=== PATIENT | male | born 1945 | race Caucasian/White ===

== ENCOUNTER 2024-02-20 19:01 | Inpatient (IN) ==
[2024-02-20 19:21] LABS: iSTAT Creatinine 1.5 mg/dl (0.6-1.3); iSTAT Hemoglobin 13.6 g/dl (14.0-18.0); iSTAT Ionized Calcium 1.1 mmol/l (1.12-1.32); iSTAT Potassium 3.1 mmol/L (3.3-5.0)
[2024-02-20] MEDS: SODIUM CHLORIDE 0.9% 1,000 ML IV ONE (19:25)
[2024-02-20 19:31] LABS: iSTAT Arterial Blood Gas HCO3 21 meg/L (19-24); iSTAT Arterial Blood Gas pCO2 42 mmHg (35-46); iSTAT Arterial Blood Gas pO2 490 mmHg (80-95); iSTAT Carbon Dioxide 22 mmol/L (24-31); iSTAT Hematocrit 38 % (42-52); iSTAT Hemoglobin 12.9 g/dl (14.0-18.0); iSTAT Potassium 3.1 mmol/L (3.3-5.0); iSTAT Sample Type Arterial; iSTAT Sodium 140 mmol/L (135-144)
[2024-02-20 19:33] LABS: Basophils # (auto) 0.04 K/uL (0.00-0.20); Basophils % (auto) 0.3 %; Eosinophils # (auto) 0.16 K/uL (0.00-0.50); Eosinophils % (auto) 1.4 %; Hematocrit (blood only) 38.1 % (42.0-52.0); Hemoglobin 12.9 g/dl (14.0-18.0); Immature Granulocytes # (auto) 0.23 K/uL (0.01-0.20); Lymphocytes # (auto) 2.82 K/uL (1.20-3.40); Mean Corpuscular Hemoglobin 31.1 pg (25.0-34.0); Mean Corpuscular Hgb Conc 33.9 g/dL (32.0-36.0); Mean Corpuscular Volume 91.8 fL (80.0-100.0); Monocytes # (auto) 0.67 K/uL (0.11-0.59); Monocytes % (auto) 5.7 %; Neutrophils # (auto) 7.84 K/uL (1.40-6.50); Neutrophils % (auto) 66.6 %; Platelet Count 182 K/uL (130-400); RDW Coefficient of Variation 12.5 % (11.5-14.5); RDW Standard Deviation 42.2 fL (36.4-46.3); Red Blood Count 4.15 M/uL (4.70-6.10); White Blood Count 11.76 K/ul (4.8-10.8)
[2024-02-20] MEDS: PROPOFOL IV EMULSION 10 MG/ML 20 ML VIAL IV ONE (19:48)
[2024-02-20] MEDS: PROPOFOL IV EMULSION 10 MG/ML 100 ML VIAL IV ONE (19:48)
[2024-02-20 19:50] LABS: Alanine Aminotransferase 209 U/L (7-52); Albumin Level 3.7 gm/dl (3.4-5.0); Alkaline Phosphatase 69 U/L (34-104); Anion Gap 14 (3-11); Aspartate Aminotransferase 156 U/L (13-39); BUN Creatinine Ratio 12.6 (10-20); Bilirubin,Total 0.5 mg/dl (0.2-1.0); Blood Urea Nitrogen 18 mg/dl (6-23); Calcium 8.2 mg/dl (8.6-10.3); Carbon Dioxide 20 mmol/L (21-32); Chloride 105 mmol/L (98-107); Glucose 247 mg/dl (70-99(Fasting)); Lipase 33 U/L (11-82); Potassium 3.1 mmol/L (3.5-5.1); Sodium 139 mmol/L (136-145); Total Protein 6.9 gm/dl (6.0-8.3)
[2024-02-20] MEDS: OPTIRAY 320 125ml IV ONE (19:55)
[2024-02-20] MEDS ORDERED: fentaNYL BOLUS from BAG IV PRN (20:00)
[2024-02-20] MEDS: NOREPINEPHRINE/D5W 4 MG/250 ML PLCT IV SCH (20:05)
[2024-02-20] MEDS: fentaNYL citrate 2,500 MCG/250 ML BAG IV SCH (20:05)
[2024-02-20] MEDS: STAT IV Infusion **Titration per Protocol STA ×3 (20:06→21:14)
[2024-02-20] MEDS: fentaNYL citrate 2,500 MCG/250 ML BAG IV ONE (20:06)
[2024-02-20] MEDS: NOREPINEPHRINE/D5W 4 MG/250 ML IV ONE (20:06)
[2024-02-20 20:08] LABS: Bilirubin Direct 0.1 mg/dl (0-0.2)
[2024-02-20] MEDS: propofoL 1,000 MG/100 ML VIAL IV SCH (21:00)
[2024-02-20] MEDS ORDERED: PROPOFOL BOLUS FROM BAG IV PRN (21:06)
--- NOTE | 2024-02-20 21:10 | Emergency Department Note ---
Impression & Plan Cardiac arrest, Elevated troponin, Admitted to intensive care unit, NSTEMI (non-ST elevated myocardial infarction), Acute hypoxic respiratory failure, Aspiration pneumonitis ED Provider Note NAME: HELEN BUTLER AGE: 79 SEX: M : 1945 ARRIVES VIA: Ambulance INFORMANT: Patient, ED PROVIDER(S): Shelia Rodriguez MD CHIEF COMPLAINT: Cardiac arrest HPI: This is a an 79-year-old male presenting for cardiac arrest/ROSC. Patient reportedly was heard having a fall and laying on the ground unresponsive. She moved himnot breathing and called 911. EMS arrived and did between 5 and 7 rounds of CPR, 2 epis were given. Patient was intubated on scene, given 10 mg of IV Versed initially. Also given fentanyl. Given fluids and amiodarone 150 mg IV. Patient upon arrival does not have any spontaneous extremity movement, but does overbreathing ventilator. ROS: See above HPI for pertinent positives & negatives. A total of 10 systems reviewed and were otherwise negative. PAST MEDICAL HISTORY: See Below PAST SURGICAL HISTORY: See Below FAMILY HISTORY: See Below SOCIAL HISTORY: See Below HOME MEDICATIONS: See Below ALLERGIES: See Below VITALS: See Below PHYSICAL EXAMINATION: General: Intubated, occasional spontaneous respirations Head: Normocephalic, laceration to posterior occiput Eyes: Reactive to light bilaterally Ear, nose, throat: Normal external exam Neck: No bruit Respiratory: lungs clear to auscultation bilaterally, possible right greater than left lung sounds Cardiovascular: Regular rate/rhythm, no murmur GI: soft, Extremities: No obvious lacerations or deformity Neuro: GCS 3 T MEDICAL DECISION MAKING: This is an 79-year-old male presented for cardiac arrest/ROSC. Patient had ROSC by EMS. Patient does have slight right greater than left lung sounds, will get x-ray to elucidate for right mainstem. -Chest x-ray as Independently interpreted by me does reveal a ET tube that is only 0.6cm above the trey. Will pull back about 3 cm. Otherwise cardiomegaly noted. -Otherwise patient is overbreathing ventilator occasionally. Will get head CT, C-spine CT, CTA PE protocol. Will get basic blood work, troponin, lactic, ABG -Patient's bloodwork is reviewed showing borderline leukocytosis of 11.76, hemoglobin of 12.9. ABG is showing slight acidosis pH of 7.30, CO2 of 42. Probably related to patient's lactic acid level of 6.5 -Electrolytes reveal electrolytes are generally within normal limits Baresel hypokalemia 3.1. Anion gap of 14. Creatinine is 1.3. He has unknown transaminitis, slight, at this time. -Initial troponin is 41.8. BNP 103. -Patient initially having normal blood pressures between 120s and 160s. Will give fluids at this time to maintain fluid status. -Is beginning to get mildly hypotensive with pressure downtrending to the 100s. Eventually did become mildly hypotensive with maps around 60. Will initiate Levophed at this time. -Patient will be started on IV fentanyl drip for sedation. He has not had much spontaneous movement but due to patient comfortable, will we will proceed with sedation. -Patient waking up slightly more, will use IV propofol in addition to help maintain sedation. -Levophed is maintained at a low dose at this time. Pressures are significantly responsive with now 160s. -CT imaging is made stat however there are significant delays in reading this. Upon independent patient I do not see a large pulmonary emboli on the CTA PE protocol. I do not see large hemorrhage on the CT of the head. I do not see obvious cervical spine fractures. -I discussed care with patient's and daughter as well as daughter on the phone. I updated them about information as it is actively being presented. I did go over goals of care and initially daughter and mother do not think patient would want this type of care but they would agree to proceed until there is better understanding of patient's overall condition. Daughter on the phone would like for us to proceed with all measures. At this time, we will proceed with invasive measures/full code as per request of family. -Eventually CT imaging reveals no acute traumatic injury of the brain, cervical spine. CTA of the chest reveals no PE but does reveal possible aspiration. -I have discussed the case with Dr. Machado for admission at this time -ICU Santos FRANK, consulted as well as patient will be going to the ICU at this time. Differential diagnosis: Cardiac arrest, PE, ACS, anoxic brain injury, anemia, electrolyte disturbance ER treatment provided: See below Independent History obtained from: Diagnostics interpreted by me: ECG: ECG independently interpreted by me with normal sinus rhythm, rate of 62, left axis deviation, first-degree AV block, widened QRS, normal QTc, no ST segment elevations consistent with STEMI criteria Cardiac Monitoring: An order was placed for continuous cardiac monitoring. The monitor shows a rate of 85 with sinus rhythm. Laboratory studies: As stated above and show below. Imaging studies: See below. Critical Care Note: I have personally spent 85 minutes of critical care time in the direct management of this patient. This includes bedside care, interpretation of diagnostic studies, and testing, discussion with consultants, patient, and family members, and other required patient management activities. This 85 minutes is in excess of all separately billable procedures. Past Med/Surg History Problem List (Updated 02/21/24 @ 16:47 by Shelia Rodriguez MD) Ischemic cardiomyopathy Anoxic brain injury Left ventricular systolic dysfunction (LVSD) NSTEMI (non-ST elevated myocardial infarction) (Acute) Cardiac arrest (Acute) Admitted to intensive care unit (Acute) Hyperglycemia Elevated troponin (Acute) Transaminitis Prediabetes Renal insufficiency Aspiration pneumonitis (Acute) Acute hypoxic respiratory failure (Acute) Lactic acidosis Anoxic brain injury Cardiac arrest Medical History B12 deficiency COPD (chronic obstructive pulmonary disease) Hypothyroidism (acquired) Allergic symptoms Hyperlipidemia Social History Smoking Status: Never smoker Hx Alcohol Use: Yes Alcohol type: wine and hard liquor Hx Substance Use: No Preferred Language: Hebrew Communication 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 Beliefs That Will Affect Care: None Current Living Situation: Spouse Other Information That Helps Us Care for You: No Feels Safe at Home: Yes Safety Concerns: Feels Safe At This Time Assistive Devices: Glasses Allergies Allergies Allergy/AdvReac Type Severity Reaction Status Date / Time cholecalciferol (vitamin D3) Allergy Unknown On file w/ Unverified 02/21/24 09:29 [From Vitamin D3] [facility] no reaction listed ciprofloxacin Allergy Unknown On file w/ Unverified 02/21/24 09:29 [facility] no reaction listed delafloxacin Allergy Unknown On file w/ Unverified 02/21/24 09:29 [facility] no reaction listed ergocalciferol (vitamin D2) Allergy Unknown On file w/ Unverified 02/21/24 09:29 [From Vitamin D2] [facility] no reaction listed moxifloxacin Allergy Unknown On file w/ Unverified 02/21/24 09:29 [facility] no reaction listed Quinolones Allergy Unknown On file w/ Unverified 02/21/24 09:29 [facility] no reaction listed Sulfa (Sulfonamide Allergy Unknown On file w/ Unverified 02/21/24 09:29 Antibiotics) [facility] no reaction listed sulfacetamide [From Plexion] Allergy Unknown On file w/ Unverified 02/21/24 09:29 [facility] no reaction listed sulfasalazine Allergy Unknown On file w/ Unverified 02/21/24 09:29 [facility] no reaction listed sulfur [From Plexion] Allergy Unknown On file w/ Unverified 02/21/24 09:29 [facility] no reaction listed thyroid, pork Allergy Unknown On file w/ Unverified 02/21/24 09:29 [From Niva Thyroid] [facility] no reaction listed latex Allergy Rash Verified 02/21/24 09:29 Home Meds Home Medications Medication Instructions Recorded Confirmed atorvastatin 10 mg tablet 10 mg PO DAILY 02/21/24 02/21/24 cetirizine 10 mg tablet 10 mg PO DAILY PRN Allergy Symptoms 02/21/24 02/21/24 levothyroxine 50 mcg tablet See Rx Instructions .Route .COMPLEX 02/21/24 02/21/24 (Synthroid) Results & Data (ED) Vital Signs Vital Signs - 24 hr 02/20/24 19:00 02/20/24 19:06 02/20/24 19:07 Temperature 35.6 C L Temperature Source Rectal Pulse Rate 68 80 73 Respiratory Rate 22 22 Blood Pressure 98/63 L Blood Pressure Mean 74 Blood Pressure Position Lying Pulse Oximetry 94 99 Oxygen Delivery Method Mechanical Vent Fraction of Inspired Oxygen 70 100 SaO2/FiO2 Ratio 99 Sepsis Recent Fever Within 48 Hours No Sepsis New/Unexplained Change in Mental Status N/A Sepsis Action Taken by Nursing Physician Notified End-Tidal CO2 38 02/20/24 19:07 02/20/24 19:09 02/20/24 19:21 Temperature Temperature Source Pulse Rate 75 68 Respiratory Rate 23 22 Blood Pressure 91/57 L 86/64 L Blood Pressure Mean 68 71 Blood Pressure Position Pulse Oximetry 99 98 98 Oxygen Delivery Method Mechanical Vent Mechanical Vent Mechanical Vent Fraction of Inspired Oxygen 100 100 50 SaO2/FiO2 Ratio Sepsis Recent Fever Within 48 Hours Sepsis New/Unexplained Change in Mental Status Sepsis Action Taken by Nursing End-Tidal CO2 30 28 02/20/24 19:33 02/20/24 19:35 02/20/24 20:03 Temperature Temperature Source Pulse Rate 64 74 Respiratory Rate 22 22 Blood Pressure 130/80 165/83 H 92/65 L Blood Pressure Mean 96 125 74 Blood Pressure Position Pulse Oximetry 91 95 Oxygen Delivery Method Mechanical Vent Fraction of Inspired Oxygen 50 70 SaO2/FiO2 Ratio Sepsis Recent Fever Within 48 Hours Sepsis New/Unexplained Change in Mental Status Sepsis Action Taken by Nursing End-Tidal CO2 32 40 02/20/24 20:09 02/20/24 20:10 02/20/24 20:25 Temperature Temperature Source Pulse Rate 70 Respiratory Rate 18 Blood Pressure 151/89 H 161/86 H 156/90 H Blood Pressure Mean 109 118 95 Blood Pressure Position Pulse Oximetry 96 Oxygen Delivery Method Fraction of Inspired Oxygen 70 SaO2/FiO2 Ratio Sepsis Recent Fever Within 48 Hours Sepsis New/Unexplained Change in Mental Status Sepsis Action Taken by Nursing End-Tidal CO2 41 02/20/24 20:33 02/20/24 20:42 02/20/24 20:57 Temperature Temperature Source Pulse Rate 74 65 82 Respiratory Rate 21 23 20 Blood Pressure 164/84 H 159/114 H 154/91 H Blood Pressure Mean 110 129 112 Blood Pressure Position Pulse Oximetry 97 98 98 Oxygen Delivery Method Fraction of Inspired Oxygen 70 70 70 SaO2/FiO2 Ratio Sepsis Recent Fever Within 48 Hours Sepsis New/Unexplained Change in Mental Status Sepsis Action Taken by Nursing End-Tidal CO2 42 40 40 02/20/24 20:58 02/20/24 21:03 Temperature 35.9 C L Temperature Source Deleon Cath ( Temp Sensing) Pulse Rate 83 Respiratory Rate 20 Blood Pressure 122/80 Blood Pressure Mean 94 Blood Pressure Position Pulse Oximetry 99 Oxygen Delivery Method Fraction of Inspired Oxygen 70 SaO2/FiO2 Ratio Sepsis Recent Fever Within 48 Hours Sepsis New/Unexplained Change in Mental Status Sepsis Action Taken by Nursing End-Tidal CO2 39 Laboratory Data 02/21/24 03:40 02/21/24 03:40 Lab Results 02/20/24 02/20/24 02/20/24 Range/Units 19:08 19:09 19:16 WBC 11.76 H (4.8-10.8) K/ul RBC 4.15 L (4.70-6.10) M/uL Hgb 12.9 L (14.0-18.0) g/dl POC Hgb 13.6 L 12.9 L (14.0-18.0) g/dl Hct 38.1 L (42.0-52.0) % POC Hct 40 L 38 L (42-52) % MCV 91.8 (80.0-100.0) fL MCH 31.1 (25.0-34.0) pg MCHC 33.9 (32.0-36.0) g/dL RDW Std Deviation 42.2 (36.4-46.3) fL RDW Coeff of Abby 12.5 (11.5-14.5) % Plt Count 182 (130-400) K/uL MPV 10.0 (9.4-12.4) fL Immature Gran % (Auto) 2.0 % Neut % (Auto) 66.6 % Lymph % (Auto) 24.0 % [place] % (Auto) 5.7 % Eos % (Auto) 1.4 % Baso % (Auto) 0.3 % Neut # (Auto) 7.84 H (1.40-6.50) K/uL Lymph # (Auto) 2.82 (1.20-3.40) K/uL [place] # (Auto) 0.67 H (0.11-0.59) K/uL Eos # (Auto) 0.16 (0.00-0.50) K/uL Baso # (Auto) 0.04 (0.00-0.20) K/uL Immature Gran # (Auto) 0.23 H (0.01-0.20) K/uL Specimen Type Arterial POC pH 7.30 L (7.35-7.45) POC pCO2 42 (35-46) mmHg POC pO2 490 H (80-95) mmHg POC HCO3 21 (19-24) brigid/L POC Base Excess -6.0 (-9-1.8) brigid/L POC ABG O2 Sat 100.0 H (90-95) % POC Sodium 140 140 (135-144) mmol/L Sodium 139 (136-145) mmol/L POC Potassium 3.1 L 3.1 L (3.3-5.0) mmol/L Potassium 3.1 L (3.5-5.1) mmol/L POC Chloride 104 (101-112) mmol/L Chloride 105 (98-107) mmol/L Carbon Dioxide 20 L (21-32) mmol/L POC Total CO2 21 L 22 L (24-31) mmol/L Anion Gap 14 H (3-11) POC Anion Gap 20.0 (16-25) mmol/L POC BUN 18 (7-18) mg/dl BUN 18 (6-23) mg/dl Creatinine 1.43 H (0.6-1.4) mg/dl POC Creatinine 1.5 H (0.6-1.3) mg/dl Est Cr Clr Drug Dosing Not Reportable eGFR 49.23 BUN/Creatinine Ratio 12.6 (10-20) Glucose 247 H (70-99(Fasting)) mg/dl POC Glucose 250 H (70-99) mg/dl POC Glucose (other) 270 H (70-99) mg/dl Lactate 6.5 H* (0.4-2.0) mmol/L Calcium 8.2 L (8.6-10.3) mg/dl POC Ioniz Calcium [place] 1.10 L (1.12-1.32) mmol/l Magnesium 2.1 (1.7-2.4) mg/dl Total Bilirubin 0.5 (0.2-1.0) mg/dl Direct Bilirubin 0.1 (0-0.2) mg/dl AST 156 H (13-39) U/L ALT 209 H (7-52) U/L Alkaline Phosphatase 69 (34-104) U/L Troponin I High Sens 41.8 H (0-20) pg/ml B-Natriuretic Peptide 103 H (0-100) pg/ml Total Protein 6.9 (6.0-8.3) gm/dl Albumin 3.7 (3.4-5.0) gm/dl Lipase 33 (11-82) U/L Nasal Screen MRSA (PCR) (Negative) 02/20/24 Range/Units 20:53 WBC (4.8-10.8) K/ul RBC (4.70-6.10) M/uL Hgb (14.0-18.0) g/dl POC Hgb (14.0-18.0) g/dl Hct (42.0-52.0) % POC Hct (42-52) % MCV (80.0-100.0) fL MCH (25.0-34.0) pg MCHC (32.0-36.0) g/dL RDW Std Deviation (36.4-46.3) fL RDW Coeff of Abby (11.5-14.5) % Plt Count (130-400) K/uL MPV (9.4-12.4) fL Immature Gran % (Auto) % Neut % (Auto) % Lymph % (Auto) % [place] % (Auto) % Eos % (Auto) % Baso % (Auto) % Neut # (Auto) (1.40-6.50) K/uL Lymph # (Auto) (1.20-3.40) K/uL [place] # (Auto) (0.11-0.59) K/uL Eos # (Auto) (0.00-0.50) K/uL Baso # (Auto) (0.00-0.20) K/uL Immature Gran # (Auto) (0.01-0.20) K/uL Specimen Type POC pH (7.35-7.45) POC pCO2 (35-46) mmHg POC pO2 (80-95) mmHg POC HCO3 (19-24) brigid/L POC Base Excess (-9-1.8) brigid/L POC ABG O2 Sat (90-95) % POC Sodium (135-144) mmol/L Sodium (136-145) mmol/L POC Potassium (3.3-5.0) mmol/L Potassium (3.5-5.1) mmol/L POC Chloride (101-112) mmol/L Chloride (98-107) mmol/L Carbon Dioxide (21-32) mmol/L POC Total CO2 (24-31) mmol/L Anion Gap (3-11) POC Anion Gap (16-25) mmol/L POC BUN (7-18) mg/dl BUN (6-23) mg/dl Creatinine (0.6-1.4) mg/dl POC Creatinine (0.6-1.3) mg/dl Est Cr Clr Drug Dosing eGFR BUN/Creatinine Ratio (10-20) Glucose (70-99(Fasting)) mg/dl POC Glucose (70-99) mg/dl POC Glucose (other) (70-99) mg/dl Lactate (0.4-2.0) mmol/L Calcium (8.6-10.3) mg/dl POC Ioniz Calcium [place] (1.12-1.32) mmol/l Magnesium (1.7-2.4) mg/dl Total Bilirubin (0.2-1.0) mg/dl Direct Bilirubin (0-0.2) mg/dl AST (13-39) U/L ALT (7-52) U/L Alkaline Phosphatase (34-104) U/L Troponin I High Sens (0-20) pg/ml B-Natriuretic Peptide (0-100) pg/ml Total Protein (6.0-8.3) gm/dl Albumin (3.4-5.0) gm/dl Lipase (11-82) U/L Nasal Screen MRSA (PCR) Negative (Negative) Administered Medications Aspirin (Aspirin 81 Mg Chew) 81 mg NG QAM [facility] Stop: 03/22/24 14:59 Last Admin: 02/21/24 15:28 Dose: 81 mg Documented By: ADRIANA Norepinephrine Bitartrate (Levophed/D5w) 4 mg in 250 mls @ 0 mls/hr IV .Q0M JAXON; Protocol Stop: 03/21/24 19:59 Last Titration: 02/21/24 00:37 Dose: 0 mcg/kg/min, 0 mls/hr Documented By: Titration: 02/20/24 21:54 Dose: 0.05 mcg/kg/min, 19.7 mls/hr Documented By: Titration: 02/20/24 21:14 Dose: 0 mcg/kg/min, 0 mls/hr Documented By: Admin: 02/20/24 20:05 Dose: 0.05 mcg/kg/min, 19.7 mls/hr Documented By: JTank Co-signed By: ANTONY Propofol (Diprivan) 1,000 mg in 100 mls @ 0 mls/hr IV .Q0M JAXON; Protocol Stop: 02/23/24 21:14 Last Titration: 02/21/24 08:35 Dose: 0 mcg/kg/min, 0 mls/hr Documented By: Titration: 02/21/24 07:21 Dose: 20 mcg/kg/min, 12.6 mls/hr Documented By: ADRIANA Co-signed By: CLC Admin: 02/21/24 01:35 Dose: 20 mcg/kg/min, 12.6 mls/hr Documented By: CLC Co-signed By: [id number] Titration: 02/21/24 01:35 Dose: Infused Documented By: CLC Co-signed By: [id number] Titration: 02/20/24 23:43 Dose: 20 mcg/kg/min, 12.6 mls/hr Documented By: Admin: 02/20/24 21:00 Dose: 15 mcg/kg/min, 9.5 mls/hr Documented By: NADER Co-signed By: BROOKLYN Pantoprazole Sodium (Protonix) 40 mg in 10 mls @ 5 mls/min IV BID JAXON Stop: 03/21/24 23:39 Last Admin: 02/21/24 09:59 Dose: 5 mls/min Documented By: Admin: 02/21/24 00:09 Dose: 5 mls/min Documented By: CLC Piperacillin Sod/Tazobactam Sod (Zosyn) 4.5 gm in 100 mls @ 25 mls/hr IV Q8H JAXON; Protocol Stop: 02/28/24 03:59 Last Admin: 02/21/24 12:39 Dose: 25 mls/hr Documented By: Infusion: 02/21/24 09:10 Dose: Infused Documented By: Admin: 02/21/24 04:21 Dose: 25 mls/hr Documented By: MMG Parenteral Electrolytes (Plasma-Lyte A Ph 7.4) 1,000 mls @ 80 mls/hr IV .[id number] JAXON Stop: 02/22/24 00:29 Last Admin: 02/21/24 12:38 Dose: 80 mls/hr Documented By: Infusion: 02/21/24 12:38 Dose: Infused Documented By: Admin: 02/21/24 00:30 Dose: 80 mls/hr Documented By: CLC Heparin Sodium/Dextrose (Heparin Sodium/Dextrose) 25,000 units in 500 mls @ 31 mls/hr IV .Q16H8M JAXON; Protocol Stop: 03/22/24 15:17 Last Admin: 02/21/24 15:43 Dose: 1,550 units/hr, 31 mls/hr Documented By: ADRIANA Co-signed By: TERRY Miscellaneous (Icu Protocol For Hyperglycemia) 1 each N/A ACHS JAXON Stop: 02/23/24 07:29 Last Admin: 02/21/24 12:37 Dose: Not Given Documented By: Admin: 02/21/24 07:29 Dose: Not Given Documented By: ADRIANA Discontinued Medications Fentanyl Citrate (Fentanyl Citrate 2,500 Mcg/250 Ml Bag) Confirm Administered Dose 2,500 mcg IV .STK-MED ONE Stop: 02/20/24 20:02 Last Admin: 02/20/24 20:06 Dose: Not Given Documented By: NADER Heparin Sodium (Porcine) (Heparin Sod (Porcine) 1000 Unit/Ml) 7,000 units IV NOW ONE Stop: 02/21/24 15:21 Last Admin: 02/21/24 15:45 Dose: 7,000 units Documented By: ADRIANA Co-signed By: TERRY Sodium Chloride (Nss) 1,000 mls @ 999 mls/hr IV .Q1H1M ONE Stop: 02/20/24 20:24 Last Infusion: 02/20/24 20:26 Dose: Infused Documented By: Admin: 02/20/24 19:25 Dose: 999 mls/hr Documented By: NADER Fentanyl Citrate (Fentanyl Citrate) 2,500 mcg in 250 mls @ 2.5 mls/hr IV .Q96H JAXON; Protocol Stop: 03/05/24 19:59 Last Titration: 02/21/24 00:03 Dose: Infused Documented By: BREANNE Co-signed By: REBECCA Admin: 02/20/24 20:05 Dose: 25 mcg/hr, 2.5 mls/hr Documented By: NADER Co-signed By: ANTONY Piperacillin Sod/Tazobactam Sod (Zosyn) 4.5 gm in 100 mls @ 200 mls/hr IV NOW ONE; Protocol Stop: 02/20/24 21:01 Last Infusion: 02/20/24 21:44 Dose: Infused Documented By: Admin: 02/20/24 21:14 Dose: 200 mls/hr Documented By: NADER Calcium Chloride 1,000 mg/ (Dextrose) 60 mls @ 240 mls/hr IV NOW STA Stop: 02/20/24 23:28 Last Infusion: 02/21/24 00:37 Dose: Infused Documented By: Admin: 02/20/24 23:51 Dose: 240 mls/hr Documented By: CLC Potassium Chloride (K Satnam / Wtr) 10 meq in 100 mls @ 100 mls/hr IV Q1H JAXON; Protocol Stop: 02/21/24 01:14 Last Infusion: 02/21/24 01:58 Dose: Infused Documented By: Admin: 02/21/24 00:51 Dose: 100 mls/hr Documented By: [id number] Infusion: 02/21/24 00:51 Dose: Infused Documented By: [id number] Admin: 02/20/24 23:58 Dose: 100 mls/hr Documented By: BREANNE Ioversol (Optiray 320 125ml) 90 ml IV ONCE ONE Stop: 02/20/24 19:55 Last Admin: 02/20/24 19:55 Dose: 90 ml Documented By: VERONICA Escobaraneous (Stat Iv Infusion Titration Per Protocol) 1 each N/A NOW STA Stop: 02/20/24 19:59 Last Admin: 02/20/24 20:06 Dose: Not Given Documented By: NADER James (Stat Iv Infusion Titration Per Protocol) 1 each N/A NOW STA Stop: 02/20/24 20:01 Last Admin: 02/20/24 20:06 Dose: Not Given Documented By: NADER James (Stat Iv Infusion Titration Per Protocol) 1 each N/A NOW STA Stop: 02/20/24 21:07 Last Admin: 02/20/24 21:14 Dose: Not Given Documented By: NADER Norepinephrine Bitartrate (Norepinephrine/D5w 4 Mg/250 Ml) Confirm Administered Dose 4 mg IV .STK-MED ONE Stop: 02/20/24 19:29 Last Admin: 02/20/24 20:06 Dose: Not Given Documented By: NADER Potassium Chloride (Potassium Chloride 20 Meq/15 Ml Udc) 40 meq PO NOW STA Stop: 02/20/24 23:15 Last Admin: 02/20/24 23:58 Dose: 40 meq Documented By: BREANNE Propofol (Propofol Iv Emulsion 10 Mg/Ml 20 Ml Vial) Confirm Administered Dose 200 mg IV .STK-MED ONE Stop: 02/20/24 19:03 Last Admin: 02/20/24 19:48 Dose: Not Given Documented By: NADER Propofol (Propofol Iv Emulsion 10 Mg/Ml 100 Ml Vial) Confirm Administered Dose 1,000 mg IV .STK-MED ONE Stop: 02/20/24 19:06 Last Admin: 02/20/24 19:48 Dose: Not Given Documented By: JT Discharge Plan Visit Data Chief Complaint: Cardiac Arrest/CPR Stated Complaint: Cardiac Arrest/CPR ED Provider: Shelia Rodriguez Discharge Problem: Cardiac arrest, Elevated troponin, Admitted to intensive care unit, NSTEMI (non-ST elevated myocardial infarction), Acute hypoxic respiratory failure, Aspiration pneumonitis Patient Disposition: Admitted As Inpatient Discharge Instructions Interventions: ED Discharge Assessment Last Done: 02/20/24 22:05
[2024-02-20] MEDS: PIPERACILLIN/TAZOBACTAM 4.5 GM/100 ML BAG IV ONE (21:14)
--- NOTE | 2024-02-20 21:15 | History & Physical Report ---
Date of Service February 20, 2024 Assessment & Plan (1) Cardiac arrest: (2) Aspiration pneumonitis: (3) Elevated troponin: (4) Acute hypoxic respiratory failure: (5) Hyperglycemia: (6) Transaminitis: (7) Lactic acidosis: (8) Renal insufficiency: (9) Prediabetes: (10) Hyperlipidemia: (11) COPD (chronic obstructive pulmonary disease): (12) Anoxic brain injury: (13) Admitted to intensive care unit: Plan Admitted to intensive care unit Cardiac arrest/ROSC, with intubation in the field Status post CPR in the field with epinephrine x 2, amiodarone 150 mg IV Continue propofol, fentanyl for sedation, to be adjusted by ICU Patient became hypotensive in the emergency department, and was started on Levophed, which may be able to be tapered off after IV fluid resuscitation Serial ABGs, CBC with differential, chemistry profile, magnesium and troponin levels Initial troponin 41.8, with follow-up 765.5 Order complete echocardiogram Consult cardiology, scaffolder and neurology Bilateral aspiration pneumonia- Zosyn 4.5 g IV every 8 hours MRSA swab DuoNebs every 2 hours as needed Serial ABGs Hyperglycemia/history of prediabetes- ICU hyperglycemic protocol Glucose initially 247, with follow-up 137 Transaminitis/shock liver/sepsis- Lactate 6.5, with follow-up 3.7 AST 156, ALT 209 History of Present Illness Chief Complaint: The patient presented to the emergency department via ambulance with history of cardiac arrest/ROSC. His reports that he had gone into another room, and then she heard a loud noise, and found him to not be breathing, with his head tilted back, and she then called 911. EMS did give somewhere between 5-7 rounds of CPR, and epinephrine time 2. Patient was intubated on the scene, after being given 10 mg of Versed IV. The patient also received amiodarone 150 mg IV, and was brought to the emergency department. Primary Care Provider: NO PCP The patient is an 79-year-old male with a past medical history including hyperlipidemia, allergic symptoms, COPD, vitamin B12 deficiency, prediabetes and hypothyroidism. He presents to the emergency department status postcardiac arrest with ROSC as noted above. Due to hypotension, he was placed on Levophed, and also placed on fentanyl drip plus propofol for sedation. He did receive normal saline 1 L IV fluid bolus in the ED. Allergies Allergy/AdvReac Type Severity Reaction Status Date / Time latex Allergy Rash Verified 02/20/24 21:05 No Known Drug Allergies Allergy . Verified 02/20/24 21:04 Past Med/Surg History Problem List (Updated 02/21/24 @ 03:09 by Manfred Foster MD) Admitted to intensive care unit Hyperglycemia Elevated troponin Transaminitis Prediabetes Renal insufficiency Aspiration pneumonitis Acute hypoxic respiratory failure Lactic acidosis Anoxic brain injury Cardiac arrest Medical History (Updated 02/21/24 @ 03:09 by Manfred Foster MD) B12 deficiency COPD (chronic obstructive pulmonary disease) Hypothyroidism (acquired) Allergic symptoms Hyperlipidemia Social History Smoking Status: Never smoker Hx Alcohol Use: Yes Alcohol type: wine and hard liquor Hx Substance Use: No Preferred Language: Belarusian Communication Ability: Effective Field Spec Required: No Beliefs That Will Affect Care: None Current Living Situation: Spouse Other Information That Helps Us Care for You: No Feels Safe at Home: Yes Safety Concerns: Feels Safe At This Time Assistive Devices: Glasses Review of Systems Review of Systems: The patient cannot contribute to the HPI or review of systems due to his acute presentation, and his and 2 daughters, 1 of which was on the phone, did provide most of the history, along with the EMS review. Physical Exam Physical Exam: The patient is intubated, sedated and unresponsive. Patient is intubated, and breathing with the vent. HEENT--PERRL, mucous membranes and oropharynx dry. Neck--supple. No JVD. No bruits. Thyroid normal, trachea midline, no adenopathy. Heart--tachycardic and regular. No murmurs, rubs or gallops. Lungs--coarse breath sounds bilaterally Abdomen--normal bowel sounds and soft. Nontender. Nondistended. Mildly tympanitic Extremities-- No edema Dermatologic--normal skin turgor, normal color, no abnormal lymph nodes, no rash. Neurologic--limited exam Rheumatologic--limited exam Psychiatric--intubated and sedated Results & Data Results & Data Vital Signs (Past 12 Hours) Vital Signs Temp Pulse Resp BP Pulse Ox O2 Del Method FiO2 02/20/24 20:58 35.9 C L 02/20/24 20:42 65 23 159/114 H 98 70 02/20/24 20:33 74 21 164/84 H 97 70 02/20/24 20:25 156/90 H 02/20/24 20:10 161/86 H 02/20/24 20:09 70 18 151/89 H 96 70 02/20/24 20:03 74 22 92/65 L 95 70 02/20/24 19:35 165/83 H 02/20/24 19:33 64 22 130/80 91 Mechanical Vent 50 02/20/24 19:21 68 22 86/64 L 98 Mechanical Vent 50 02/20/24 19:09 75 23 91/57 L 98 Mechanical Vent 100 02/20/24 19:07 99 Mechanical Vent 100 02/20/24 19:07 35.6 C L 73 22 98/63 L 99 Mechanical Vent 100 02/20/24 19:06 80 02/20/24 19:00 68 22 94 70 Laboratory Results Laboratory Results WBC 11.76 K/ul (4.8-10.8) H 02/20/24 19:09 RBC 4.15 M/uL (4.70-6.10) L 02/20/24 19:09 Hgb 12.9 g/dl (14.0-18.0) L 02/20/24 19:09 POC Hgb 13.3 g/dl (14.0-18.0) L 02/20/24 23:58 Hct 38.1 % (42.0-52.0) L 02/20/24 19:09 POC Hct 39 % (42-52) L 02/20/24 23:58 MCV 91.8 fL (80.0-100.0) 02/20/24 19:09 MCH 31.1 pg (25.0-34.0) 02/20/24 19:09 MCHC 33.9 g/dL (32.0-36.0) 02/20/24 19:09 RDW Std Deviation 42.2 fL (36.4-46.3) 02/20/24 19:09 RDW Coeff of Abby 12.5 % (11.5-14.5) 02/20/24 19:09 Plt Count 182 K/uL (130-400) 02/20/24 19:09 MPV 10.0 fL (9.4-12.4) 02/20/24 19:09 Immature Gran % (Auto) 2.0 % 02/20/24 19:09 Neut % (Auto) 66.6 % 02/20/24 19:09 Lymph % (Auto) 24.0 % 02/20/24 19:09 [place] % (Auto) 5.7 % 02/20/24 19:09 Eos % (Auto) 1.4 % 02/20/24 19:09 Baso % (Auto) 0.3 % 02/20/24 19:09 Neut # (Auto) 7.84 K/uL (1.40-6.50) H 02/20/24 19:09 Lymph # (Auto) 2.82 K/uL (1.20-3.40) 02/20/24 19:09 [place] # (Auto) 0.67 K/uL (0.11-0.59) H 02/20/24 19:09 Eos # (Auto) 0.16 K/uL (0.00-0.50) 02/20/24 19:09 Baso # (Auto) 0.04 K/uL (0.00-0.20) 02/20/24 19:09 Immature Gran # (Auto) 0.23 K/uL (0.01-0.20) H 02/20/24 19:09 Specimen Type Arterial 02/20/24 23:58 Sample Site L Radial 02/20/24 23:58 POC pH 7.36 (7.35-7.45) 02/20/24 23:58 POC pCO2 40 mmHg (35-46) 02/20/24 23:58 POC pO2 59 mmHg (80-95) L 02/20/24 23:58 POC HCO3 23 brigid/L (19-24) 02/20/24 23:58 POC Total CO2 24 mmol/L (24-31) 02/20/24 23:58 POC Base Excess -3.0 brigid/L (-9-1.8) 02/20/24 23:58 O2 Sat Pulse Oximetry 95 02/20/24 23:58 ABG pH (Temp Correct) 7.355 (7.35-7.45) 02/20/24 23:58 ABG pCO2 (Temp Corrct 41 mmHg (35-46) 02/20/24 23:58 POC ABG pO2 at Pt Temp 59 02/20/24 23:58 POC ABG O2 Sat 89.0 % (90-95) L 02/20/24 23:58 Raul Test Pass 02/20/24 23:58 O2 Delivery Device Ventilator 02/20/24 23:58 Vent Mode AC 02/20/24 23:58 POC FiO2 40 % 02/20/24 23:58 End Tidal CO2 31 02/20/24 23:58 POC Sodium 139 mmol/L (135-144) 02/20/24 23:58 Sodium 139 mmol/L (136-145) 02/20/24 19:09 POC Potassium 4.1 mmol/L (3.3-5.0) 02/20/24 23:58 Potassium 3.1 mmol/L (3.5-5.1) L 02/20/24 19:09 POC Chloride 104 mmol/L (101-112) 02/20/24 19:09 Chloride 105 mmol/L (98-107) 02/20/24 19:09 Carbon Dioxide 20 mmol/L (21-32) L 02/20/24 19:09 POC Total CO2 21 mmol/L (24-31) L 02/20/24 19:09 Anion Gap 14 (3-11) H 02/20/24 19:09 POC Anion Gap 20.0 mmol/L (16-25) 02/20/24 19:09 POC BUN 18 mg/dl (7-18) 02/20/24 19:09 BUN 18 mg/dl (6-23) 02/20/24 19:09 Creatinine 1.43 mg/dl (0.6-1.4) H 02/20/24 19:09 POC Creatinine 1.5 mg/dl (0.6-1.3) H 02/20/24 19:09 Est Cr Clr Drug Dosing Not Reportable 02/20/24 19:09 eGFR 49.23 02/20/24 19:09 BUN/Creatinine Ratio 12.6 (10-20) 02/20/24 19:09 Glucose 247 mg/dl (70-99(Fasting)) H 02/20/24 19:09 POC Glucose 137 mg/dl (70-99) H 02/21/24 00:34 POC Glucose (other) 270 mg/dl (70-99) H 02/20/24 19:09 Lactate 3.7 mmol/L (0.4-2.0) H* 02/20/24 23:24 Calcium 8.2 mg/dl (8.6-10.3) L 02/20/24 19:09 POC Ioniz Calcium [place] 1.10 mmol/l (1.12-1.32) L 02/20/24 19:09 Magnesium 2.1 mg/dl (1.7-2.4) 02/20/24 19:09 Total Bilirubin 0.5 mg/dl (0.2-1.0) 02/20/24 19:09 Direct Bilirubin 0.1 mg/dl (0-0.2) 02/20/24 19:09 AST 156 U/L (13-39) H 02/20/24 19:09 ALT 209 U/L (7-52) H 02/20/24 19:09 Alkaline Phosphatase 69 U/L (34-104) 02/20/24 19:09 Troponin I High Sens 765.5 pg/ml (0-20) H* D 02/20/24 23:24 B-Natriuretic Peptide 103 pg/ml (0-100) H 02/20/24 19:09 Total Protein 6.9 gm/dl (6.0-8.3) 02/20/24 19:09 Albumin 3.7 gm/dl (3.4-5.0) 02/20/24 19:09 Lipase 33 U/L (11-82) 02/20/24 19:09 Nasal Screen MRSA (PCR) Negative (Negative) 02/20/24 20:[address] 02/20/24 19:16 Exam(s): CT C SPINE EXAM: CT Cervical Spine Without Intravenous Contrast CLINICAL HISTORY: Reason for exam: ROSC. head trauma, fall. TECHNIQUE: Axial computed tomography images of the cervical spine without intravenous contrast. Automated exposure control was utilized for the study. A dose lowering technique was utilized adhering to the principles of ALARA. COMPARISON: None FINDINGS: Motion artifact. Endotracheal intubation. Vertebrae: Mild levoscoliosis. C4 vertebral minimal retrolisthesis. Otherwise no segmental malalignment. Osteopenia. No acute fracture. Discs/spinal canal/neural foramina: C5-C7 levels moderately advanced degenerative spondylitic changes with variable degrees of neuroforaminal and spinal canal stenosis. Soft tissues: Grossly unremarkable. . IMPRESSION: No acute fracture or traumatic malalignment of the cervical spine is noted . Electronically signed by: Danette Salazar MD, DABR 02/21/24 01:[address] 02/20/24 19:16 Exam(s): CT HEAD Without Contrast EXAM: CT Head Without Intravenous Contrast CLINICAL HISTORY: Reason for exam: ROSC. head trauma, fall. TECHNIQUE: Axial computed tomography images of the head/brain without intravenous contrast. Automated exposure control was utilized for the study. A dose lowering technique was utilized adhering to the principles of ALARA. COMPARISON: None. FINDINGS: Diagnostic sensitivity of the exam is reduced by motion/beam hardening artifacts Brain: Grossly no acute intracranial hemorrhage is evident. There is no mass-effect or midline shift. Johnson-white matter differentiation is maintained. Age-related diffuse cerebral atrophy with widening of the extra-axial spaces/ventricular dilatation. Bilateral senescent punctate basal ganglion calcifications. Bilateral mild/moderate periventricular white matter small vessel ischemic changes. Bones/joints: Unremarkable. No acute fracture. Soft tissues: Unremarkable. Anteriorly thick densely calcified interhemispheric plaque. Sinuses: Unremarkable as visualized. No acute sinusitis. Mastoid air cells: Unremarkable as visualized. No mastoid effusion. IMPRESSION: Limited exam. No conclusive acute intracranial abnormality identified. Significant chronic involutional changes of the brain. . Electronically signed by: Danette Salazar MD, DABR 02/20/24 23:02 PM Chest X-Ray 02/20/24 19:17 Exam(s): XR CXR 1 VIEW EXAM: XR Chest, 1 View CLINICAL HISTORY: Reason for exam: ROSC, intubation. TECHNIQUE: Frontal view of the chest. COMPARISON: None FINDINGS: Hardware: Endotracheal tube terminates in the region of the proximal right mainstem bronchus. Recommend approximately 4-5 cm of retraction. Lungs/pleura: Opacities bilaterally. No pleural effusion or pneumothorax. Heart/mediastinum: Mild enlargement of the cardiac silhouette. Soft tissues: Unremarkable. Bones: No acute fracture. Degenerative changes of the spine. Upper abdomen: Normal. IMPRESSION: 1. Endotracheal tube terminates in the region of the proximal right mainstem bronchus. Recommend approximately 4-5 cm of retraction. 2. Opacities bilaterally may represent atelectasis versus edema versus infectious/inflammatory process. Electronically signed by: Rolly Carmen M.D. 02/21/24 01:59 AM Chest CTA 02/20/24 19:37 Exam(s): CTA CHEST IV Amt: 90 ml opti 320 EXAM: CT Angiography Chest With Intravenous Contrast CLINICAL HISTORY: Reason for exam: PE. TECHNIQUE: Axial computed tomographic angiography images of the chest with intravenous contrast. Automated exposure control was utilized for the study. A dose lowering technique was utilized adhering to the principles of ALARA. MIP reconstructed images were created and reviewed. COMPARISON: X-ray chest: 02/20/2024 FINDINGS: Patient is intubated. Pulmonary arteries: Unremarkable. No pulmonary embolism. Aorta: No acute findings. No thoracic aortic aneurysm. Lungs: Central airways are patent. Bilateral mild/moderate bronchial wall thickening. Posteriorly in both lungs, predominantly basilar subpleural consolidation/atelectasis and interstitial infiltrates are seen with hilar extension LT>RT. No discernible mass. Pleural space: Posteriorly minimal/ trace right pleural fluid. No significant effusion. No pneumothorax. Elevated right hemidiaphragm Heart: Cardiomegaly. Calcified left coronary arterial atherosclerosis.. No significant pericardial effusion. No evidence of RV dysfunction. Bones/joints: Osteopenia. No acute osseous findings. Increased thoracic kyphosis. Degenerative thoracic spondylolysis. Soft tissues: Unremarkable. Lymph nodes: Unremarkable. No enlarged lymph nodes. IMPRESSION: No evidence of pulmonary embolism or aortic aneurysm. Bilateral bronchial wall thickening. Posteriorly in both lungs predominantly basilar regions subpleural consolidation/atelectasis and interstitial infiltrates with hilar extension demonstrated, concerning for aspiration. Recommend clinical correlation/follow-up. . Electronically signed by: Danette Salazar MD, DABR 02/21/24 00:51 AM Code Status & VTE Plan Code Status Conditional code-family does not want additional interventions performed beyond present VTE Prophylaxis Plan VTE Prophylaxis will be ordered: Yes Critical Care Time 50 minutes PG Care Time/CCT Total # of Minutes Spent Total Time Spent with Patient: Total time spent is greater than 50% in coordination of care (as documented) at patient's floor/unit and/or counseling patient: Coding Level of Care Code 98775 INT INP/OBS CARE 3/75MIN Diagnoses Cardiac arrest I46.9 Aspiration pneumonitis J69.0 Elevated troponin R79.89 Acute hypoxic respiratory failure J96.01 Hyperglycemia R73.9 Transaminitis R74.01 Lactic acidosis E87.20 Renal insufficiency N28.9 Prediabetes R73.03 Hyperlipidemia E78.5 COPD (chronic obstructive pulmonary disease) J44.9 Anoxic brain injury G93.1 Admitted to intensive care unit Z78.9
[2024-02-20 21:38] LABS: Magnesium 2.1 mg/dl (1.7-2.4)
--- NOTE | 2024-02-20 21:45 | Critical Care Consultation ---
Date of Consultation February 20, 2024 Assessment & Plan (1) Cardiac arrest: Reason Critically Ill: 79-year-old male presents to the ICU post infield cardiac arrest where he received multiple rounds of CPR and epinephrine via EMS. He was reported to received some CPR by the neighbor prior to EMS arrival but unsure of exact downtime. He was on responsive after ROSC was achieved And emergently intubated prior to arrival to the hospital. Suspect underlying anoxic injury. Was briefly on vasopressors but now weaned off. Admitted to ICU for further management at this time. Neuro - Anoxic injury?Patient unresponsive following cardiac arrest. Exam limited due to current sedation on board and patient is currently mechanically ventilated as well. - CT head unremarkable. CT spine cervical without acute findings - MRI read pending - Follow-up EEG - Continue supportive care and reevaluate neurological status tomorrow Cardiac - Cardiac arrestunsure of exact etiology at this time but suspect arrhythmia and field. Patient apparently has no previous cardiac history and does not have a pacemaker or AICD - Per report, patient received several rounds of CPR and epinephrine in the field via EMS before ROSC achieved - EKG without ST elevation. Mildly elevated troponin would be consistent with postarrest requiring chest compressions and epinephrine. Continue to trend troponin for peak - Briefly on vasopressor support with Levophed. Now weaned off. Maintain maps greater than 65 - Follow-up TTE - Continuous monitoring on telemetry - Follow-up morning EKG Respiratory - Acute hypoxemic respiratory failureno previous history of pulmonary disease. Likely secondary to aspiration pneumonitis following cardiac arrest -Currently mechanically ventilated for airway support. Wean ventilator settings as tolerated -CTA negative for acute PE. Bilateral infiltrates consistent with aspiration noted -Nebs as needed - Follow-up morning ABG and chest x-ray - Continuous pulse ox and end-tidal CO2 monitoring GI - N.p.o. PPI for PUD prophylaxis RENAL/LYTES - AKIcreatinine 1.43 without previous baseline to compare. Suspect this is prerenal following cardiac arrest. - No significant electrolyte abnormalities or acidosis to indicate bicarb. Continue with IV fluid resuscitation -Maintain maps greater than 65 to ensure renal perfusion -Avoid nephrotoxins and renally dose medications - Monitor routine BMPs. Replete electrolytes as indicated Lactic acidosis Likely secondary to cardiac arrest. Aspiration pneumonitis likely playing a role as well. Currently downtrending, trend till normal. - Foleystrict I's and O's ENDO - No history of diabetes or thyroid disease. ICU hyperglycemic protocol HEME - H&H stable, monitor routine CBC ID - Aspiration pneumoniapatient with bilateral consolidations on CTA chest consistent with aspiration likely during the event of cardiac arrest. Mild leukocytosis, currently afebrile - Continue with empiric Zosyn for now LINES/IV ACCESS - Peripheral IVs. Patient currently weaned off vasopressor support, no indication for central line at this time DVT PROPHYLAXIS - SCDs CODE STATUS: Per conversation with the patient's family at bedside Conditional code with no additional CPR/defibrillation in the event of further cardiac arrest. Okay with mechanical ventilation for now I have personally spent 56 minutes of critical care time in the direct management of this patient. This is a life/limb threatening event. This includes time spent evaluating patient, direct bedside care, chart review, placing orders, interpretation of diagnostic studies, discussion with consultants, patient, and family members, as well as other required patient management activities. This time is exclusive of all separately billable procedures, and teaching time and separate from and in addition to any other critical care service time. Thank you for allowing us to participate in the care of this patient. Please refer to my attending physician's documentation for any further recommendations. (2) Anoxic brain injury: (3) Lactic acidosis: (4) Acute hypoxic respiratory failure: (5) Aspiration pneumonitis: Supervising Physician Co-Signing Physician Notes Patient seen and examined. EMR reviewed. Discussed with critical care OBDULIA. Agree with assessment plan as noted. Please refer to my progress note from 02/21/2024 for additional details History of Present Illness History of Present Illness Patient is a 79-year-old male not previously known to this facility, without documented past medical history. Patient's and daughter at the bedside state that he does not take any medications, and does not routinely follow-up with primary care. He presented to the hospital earlier this evening via EMS following cardiac arrest at home in which the heard him fall in the other room. Patient's at the bedside states that he was not complaining of any symptoms previously during the day, and they even walked about a mile and a half prior to this event without any difficulty. She states that she heard him fall in the other room and found him to be unresponsive without any breaths, and was unable to turn him over to start CPR so she went to get the neighbor who began CPR until EMS arrived. EMS did multiple rounds of compressions and epinephrine (no shocks delivered per conversation with the ED physician) until ROSC was achieved. Patient again became pulseless briefly and required additional CPR until ROSC was again achieved. He was emergently intubated by EMS in field. On arrival to the emergency department patient was noted to be unresponsive but was chewing on ET tube and sedation was started. He underwent CT head and CT cervical spine which were both negative for acute findings. CTA chest was obtained which was negative for PE but did show bilateral infiltrates in the lungs consistent with Aspiration. Patient was briefly on Levophed drip which was weaned off as he became hypertensive. EKG without ST elevation and Mildly elevated troponin. He did have elevated lactate which would be consistent with cardiac arrest. I did have a discussion with the family regarding the patient's CODE STATUS and current medical condition. It is likely that he sustained some degree of anoxic injury due to prolonged cardiac arrest in field, however cannot be sure of degree of cognitive deficits sustained at this point. Both daughter and state that the patient would not want to be in a comatose state or significantly debilitated and if he were to have additional cardiac arrest would not want additional compressions or shocks or other ACLS measures. Will transition to conditional code per family wishes and continue with supportive care here in the ICU. He did undergo MRI which is pending read, and hopefully will have better understanding of his neurological status within the next 24 hours. Allergies Allergy/AdvReac Type Severity Reaction Status Date / Time cholecalciferol (vitamin D3) Allergy Unknown On file w/ Unverified 02/21/24 09:29 [From Vitamin D3] [facility] no reaction listed ciprofloxacin Allergy Unknown On file w/ Unverified 02/21/24 09:29 [facility] no reaction listed delafloxacin Allergy Unknown On file w/ Unverified 02/21/24 09:29 [facility] no reaction listed ergocalciferol (vitamin D2) Allergy Unknown On file w/ Unverified 02/21/24 09:29 [From Vitamin D2] [facility] no reaction listed moxifloxacin Allergy Unknown On file w/ Unverified 02/21/24 09:29 [facility] no reaction listed Quinolones Allergy Unknown On file w/ Unverified 02/21/24 09:29 [facility] no reaction listed Sulfa (Sulfonamide Allergy Unknown On file w/ Unverified 02/21/24 09:29 Antibiotics) [facility] no reaction listed sulfacetamide [From Plexion] Allergy Unknown On file w/ Unverified 02/21/24 09:29 [facility] no reaction listed sulfasalazine Allergy Unknown On file w/ Unverified 02/21/24 09:29 [facility] no reaction listed sulfur [From Plexion] Allergy Unknown On file w/ Unverified 02/21/24 09:29 [facility] no reaction listed thyroid, pork Allergy Unknown On file w/ Unverified 02/21/24 09:29 [From Niva Thyroid] [facility] no reaction listed latex Allergy Rash Verified 02/21/24 09:29 Home Medications Medication Instructions Recorded Confirmed Type atorvastatin 10 mg tablet 10 mg PO DAILY 02/21/24 02/21/24 History cetirizine 10 mg tablet 10 mg PO DAILY PRN Allergy Symptoms 02/21/24 02/21/24 History levothyroxine 50 mcg tablet See Rx Instructions .Route .COMPLEX 02/21/24 02/21/24 History (Synthroid) Patient History Medical History B12 deficiency COPD (chronic obstructive pulmonary disease) Hypothyroidism (acquired) Allergic symptoms Hyperlipidemia Social History Smoking Status: Never smoker Hx Alcohol Use: Yes Alcohol type: wine and hard liquor Hx Substance Use: No Preferred Language: Yakut Communication Ability: Effective Visual Merchandiser Required: No Beliefs That Will Affect Care: None Current Living Situation: Spouse Other Information That Helps Us Care for You: No Feels Safe at Home: Yes Safety Concerns: Feels Safe At This Time Assistive Devices: Glasses Review of Systems Review of Systems: Unobtainable due to cognitive status and Unobtainable due to endotracheal tube Physical Exam Constitutional: average body habitus and + mechanically ventilated; no acute distress Eyes: PERRL, conjunctivae normal, anicteric sclerae ENMT: external ear and nose normal, oropharynx normal Neck: trachea midline, no thyromegaly Respiratory: normal respiratory effort, lungs clear to auscultation Gastrointestinal (Abdomen): normal bowel sounds, soft, nontender, no hepatosplenomegaly Musculoskeletal: no cyanosis or clubbing, extremities motor strength 5/5 Skin: no rashes, warm and dry Neurologic: Exam limited due to sedation/ET tube. PERRLA. Cough, gag, corneal reflexes intact. At this time does not follow commands or have purposeful movement. Psychiatric: Unable to assess due to sedation/ET tube Results & Data Results & Data Vital Signs (Past 12 Hours) Vital Signs Temp Pulse Resp BP Pulse Ox O2 Del Method FiO2 02/20/24 21:30 77 20 110/76 99 02/20/24 21:24 79 22 125/80 98 02/20/24 21:18 68 26 H 159/98 H 98 70 02/20/24 21:15 77 21 128/83 99 70 02/20/24 21:03 83 20 122/80 99 70 02/20/24 20:58 35.9 C L 02/20/24 20:57 82 20 154/91 H 98 70 02/20/24 20:42 65 23 159/114 H 98 70 02/20/24 20:33 74 21 164/84 H 97 70 02/20/24 20:25 156/90 H 02/20/24 20:10 161/86 H 02/20/24 20:09 70 18 151/89 H 96 70 02/20/24 20:03 74 22 92/65 L 95 70 02/20/24 19:35 165/83 H 02/20/24 19:33 64 22 130/80 91 Mechanical Vent 50 02/20/24 19:21 68 22 86/64 L 98 Mechanical Vent 50 02/20/24 19:09 75 23 91/57 L 98 Mechanical Vent 100 02/20/24 19:07 99 Mechanical Vent 100 02/20/24 19:07 35.6 C L 73 22 98/63 L 99 Mechanical Vent 100 02/20/24 19:06 80 02/20/24 19:00 68 22 94 70 Diagnostic Findings Exam(s): CT HEAD Without Contrast EXAM: CT Head Without Intravenous Contrast CLINICAL HISTORY: Reason for exam: ROSC. head trauma, fall. TECHNIQUE: Axial computed tomography images of the head/brain without intravenous contrast. Automated exposure control was utilized for the study. A dose lowering technique was utilized adhering to the principles of ALARA. COMPARISON: None. FINDINGS: Diagnostic sensitivity of the exam is reduced by motion/beam hardening artifacts Brain: Grossly no acute intracranial hemorrhage is evident. There is no mass-effect or midline shift. Johnson-white matter differentiation is maintained. Age-related diffuse cerebral atrophy with widening of the extra-axial spaces/ventricular dilatation. Bilateral senescent punctate basal ganglion calcifications. Bilateral mild/moderate periventricular white matter small vessel ischemic changes. Bones/joints: Unremarkable. No acute fracture. Soft tissues: Unremarkable. Anteriorly thick densely calcified interhemispheric plaque. Sinuses: Unremarkable as visualized. No acute sinusitis. Mastoid air cells: Unremarkable as visualized. No mastoid effusion. IMPRESSION: Limited exam. No conclusive acute intracranial abnormality identified. Significant chronic involutional changes of the brain. . Electronically signed by: Danette Salazar MD, DABR 02/20/24 23:02 PM Exam(s): CT C SPINE EXAM: CT Cervical Spine Without Intravenous Contrast CLINICAL HISTORY: Reason for exam: ROSC. head trauma, fall. TECHNIQUE: Axial computed tomography images of the cervical spine without intravenous contrast. Automated exposure control was utilized for the study. A dose lowering technique was utilized adhering to the principles of ALARA. COMPARISON: None FINDINGS: Motion artifact. Endotracheal intubation. Vertebrae: Mild levoscoliosis. C4 vertebral minimal retrolisthesis. Otherwise no segmental malalignment. Osteopenia. No acute fracture. Discs/spinal canal/neural foramina: C5-C7 levels moderately advanced degenerative spondylitic changes with variable degrees of neuroforaminal and spinal canal stenosis. Soft tissues: Grossly unremarkable. . IMPRESSION: No acute fracture or traumatic malalignment of the cervical spine is noted . Electronically signed by: Danette Salazar MD, DABR 02/21/24 01:03 AM Exam(s): CTA CHEST IV Amt: 90 ml opti 320 EXAM: CT Angiography Chest With Intravenous Contrast CLINICAL HISTORY: Reason for exam: PE. TECHNIQUE: Axial computed tomographic angiography images of the chest with intravenous contrast. Automated exposure control was utilized for the study. A dose lowering technique was utilized adhering to the principles of ALARA. MIP reconstructed images were created and reviewed. COMPARISON: X-ray chest: 02/20/2024 FINDINGS: Patient is intubated. Pulmonary arteries: Unremarkable. No pulmonary embolism. Aorta: No acute findings. No thoracic aortic aneurysm. Lungs: Central airways are patent. Bilateral mild/moderate bronchial wall thickening. Posteriorly in both lungs, predominantly basilar subpleural consolidation/atelectasis and interstitial infiltrates are seen with hilar extension LT>RT. No discernible mass. Pleural space: Posteriorly minimal/ trace right pleural fluid. No significant effusion. No pneumothorax. Elevated right hemidiaphragm Heart: Cardiomegaly. Calcified left coronary arterial atherosclerosis.. No significant pericardial effusion. No evidence of RV dysfunction. Bones/joints: Osteopenia. No acute osseous findings. Increased thoracic kyphosis. Degenerative thoracic spondylolysis. Soft tissues: Unremarkable. Lymph nodes: Unremarkable. No enlarged lymph nodes. IMPRESSION: No evidence of pulmonary embolism or aortic aneurysm. Bilateral bronchial wall thickening. Posteriorly in both lungs predominantly basilar regions subpleural consolidation/atelectasis and interstitial infiltrates with hilar extension demonstrated, concerning for aspiration. Recommend clinical correlation/follow-up. . Electronically signed by: Danette Salazar MD, ISRAR 02/21/24 00:51 AM Coding Level of Care Code 20695 CRITICAL CARE 1ST 30-74M Diagnoses Cardiac arrest I46.9 Anoxic brain injury G93.1 Lactic acidosis E87.20 Acute hypoxic respiratory failure J96.01 Aspiration pneumonitis J69.0
--- NOTE | 2024-02-20 23:02 | CT Scan Report ---
Exam(s): CT HEAD Without Contrast EXAM: CT Head Without Intravenous Contrast CLINICAL HISTORY: Reason for exam: ROSC. head trauma, fall. TECHNIQUE: Axial computed tomography images of the head/brain without intravenous contrast. Automated exposure control was utilized for the study. A dose lowering technique was utilized adhering to the principles of ALARA. COMPARISON: None. FINDINGS: Diagnostic sensitivity of the exam is reduced by motion/beam hardening artifacts Brain: Grossly no acute intracranial hemorrhage is evident. There is no mass-effect or midline shift. Johnson-white matter differentiation is maintained. Age-related diffuse cerebral atrophy with widening of the extra-axial spaces/ventricular dilatation. Bilateral senescent punctate basal ganglion calcifications. Bilateral mild/moderate periventricular white matter small vessel ischemic changes. Bones/joints: Unremarkable. No acute fracture. Soft tissues: Unremarkable. Anteriorly thick densely calcified interhemispheric plaque. Sinuses: Unremarkable as visualized. No acute sinusitis. Mastoid air cells: Unremarkable as visualized. No mastoid effusion. IMPRESSION: Limited exam. No conclusive acute intracranial abnormality identified. Significant chronic involutional changes of the brain. . Electronically signed by: Danette Salazar MD, DABR 02/20/24 23:02 PM
[2024-02-20] MEDS ORDERED: ACETAMINOPHEN 1000 MG/100 ML IV IV PRN (23:40)
[2024-02-20] MEDS ORDERED: ALBUT/IPRATROP 3MG/0.5MG NEB 3 ML VIAL NEB PRN (23:40)
[2024-02-20] MEDS ORDERED: ONDANSETRON INJ 2 MG/ML 2 ML VIAL IV PRN (23:40)
[2024-02-20] MEDS: CALCIUM CHLORIDE 10% 1,000 MG in DEXTROSE 5% 50 ML IV STA (23:51)
[2024-02-20] MEDS: POTASSIUM CHLORIDE / WTR 10 MEQ/100 ML PLCT IV SCH (23:58)
[2024-02-20] MEDS: POTASSIUM CHLORIDE 20 MEQ/15 ML UDC PO STA (23:58)
[2024-02-21 00:05] LABS: iSTAT Allen Test Pass; iSTAT Art Bld Gas pCO2 Correct 41 mmHg (35-46); iSTAT Art Bld Gas pH Corrected 7.355 (7.35-7.45); iSTAT Arterial Blood Gas HCO3 23 meg/L (19-24); iSTAT Arterial Blood Gas pCO2 40 mmHg (35-46); iSTAT Arterial Blood Gas pH 7.36 (7.35-7.45); iSTAT Arterial Blood Gas pO2 59 mmHg (80-95); iSTAT Arterial Blood Gas pO2 C 59; iSTAT Carbon Dioxide 24 mmol/L (24-31); iSTAT FiO2 40 %; iSTAT Hematocrit 39 % (42-52); iSTAT Hemoglobin 13.3 g/dl (14.0-18.0); iSTAT Potassium 4.1 mmol/L (3.3-5.0); iSTAT Sample Type Arterial; iSTAT Site L Radial; iSTAT Sodium 139 mmol/L (135-144); iSTAT SpO2 95
[2024-02-21] MEDS: PANTOprazole 40 MG/10 ML SYR IV SCH (00:09)
[2024-02-21] MEDS: PLASMA-LYTE A 1,000 ML IV SCH (00:30)
--- NOTE | 2024-02-21 00:52 | CT Scan Report ---
Exam(s): CTA CHEST IV Amt: 90 ml opti 320 EXAM: CT Angiography Chest With Intravenous Contrast CLINICAL HISTORY: Reason for exam: PE. TECHNIQUE: Axial computed tomographic angiography images of the chest with intravenous contrast. Automated exposure control was utilized for the study. A dose lowering technique was utilized adhering to the principles of ALARA. MIP reconstructed images were created and reviewed. COMPARISON: X-ray chest: 02/20/2024 FINDINGS: Patient is intubated. Pulmonary arteries: Unremarkable. No pulmonary embolism. Aorta: No acute findings. No thoracic aortic aneurysm. Lungs: Central airways are patent. Bilateral mild/moderate bronchial wall thickening. Posteriorly in both lungs, predominantly basilar subpleural consolidation/atelectasis and interstitial infiltrates are seen with hilar extension LT>RT. No discernible mass. Pleural space: Posteriorly minimal/ trace right pleural fluid. No significant effusion. No pneumothorax. Elevated right hemidiaphragm Heart: Cardiomegaly. Calcified left coronary arterial atherosclerosis.. No significant pericardial effusion. No evidence of RV dysfunction. Bones/joints: Osteopenia. No acute osseous findings. Increased thoracic kyphosis. Degenerative thoracic spondylolysis. Soft tissues: Unremarkable. Lymph nodes: Unremarkable. No enlarged lymph nodes. IMPRESSION: No evidence of pulmonary embolism or aortic aneurysm. Bilateral bronchial wall thickening. Posteriorly in both lungs predominantly basilar regions subpleural consolidation/atelectasis and interstitial infiltrates with hilar extension demonstrated, concerning for aspiration. Recommend clinical correlation/follow-up. . Electronically signed by: Danette Salazar MD, ISRAR 02/21/24 00:51 AM
[2024-02-21] MEDS ORDERED: ACETAMINOPHEN 1,000 MG/100 ML VIAL IV PRN (01:00)
--- NOTE | 2024-02-21 01:04 | CT Scan Report ---
Exam(s): CT C SPINE EXAM: CT Cervical Spine Without Intravenous Contrast CLINICAL HISTORY: Reason for exam: ROSC. head trauma, fall. TECHNIQUE: Axial computed tomography images of the cervical spine without intravenous contrast. Automated exposure control was utilized for the study. A dose lowering technique was utilized adhering to the principles of ALARA. COMPARISON: None FINDINGS: Motion artifact. Endotracheal intubation. Vertebrae: Mild levoscoliosis. C4 vertebral minimal retrolisthesis. Otherwise no segmental malalignment. Osteopenia. No acute fracture. Discs/spinal canal/neural foramina: C5-C7 levels moderately advanced degenerative spondylitic changes with variable degrees of neuroforaminal and spinal canal stenosis. Soft tissues: Grossly unremarkable. . IMPRESSION: No acute fracture or traumatic malalignment of the cervical spine is noted . Electronically signed by: Danette Salazar MD, ISRAR 02/21/24 01:03 AM
--- NOTE | 2024-02-21 02:00 | XRay Report ---
Exam(s): XR CXR 1 VIEW EXAM: XR Chest, 1 View CLINICAL HISTORY: Reason for exam: ROSC, intubation. TECHNIQUE: Frontal view of the chest. COMPARISON: None FINDINGS: Hardware: Endotracheal tube terminates in the region of the proximal right mainstem bronchus. Recommend approximately 4-5 cm of retraction. Lungs/pleura: Opacities bilaterally. No pleural effusion or pneumothorax. Heart/mediastinum: Mild enlargement of the cardiac silhouette. Soft tissues: Unremarkable. Bones: No acute fracture. Degenerative changes of the spine. Upper abdomen: Normal. IMPRESSION: 1. Endotracheal tube terminates in the region of the proximal right mainstem bronchus. Recommend approximately 4-5 cm of retraction. 2. Opacities bilaterally may represent atelectasis versus edema versus infectious/inflammatory process. Electronically signed by: Rolly Carmen M.D. 02/21/24 01:59 AM
--- NOTE | 2024-02-21 03:17 | Billing Data ---
Date of Service February 21, 2024 Coding Level of Care Code 09093 CRITICAL CARE
--- NOTE | 2024-02-21 03:38 | Magnetic Resonance Report ---
Exam(s): MRI HEAD Without Contrast EXAM: MR Head Without Intravenous Contrast CLINICAL HISTORY: Reason for exam: acute LOC, now intubated. TECHNIQUE: Magnetic resonance images of the head/brain without intravenous contrast in multiple planes. COMPARISON: Prior head CT from February 20, 2024. FINDINGS: Brain: Minimal nonspecific white matter changes. No mass. No hemorrhage. No acute infarct. The flow was of the base of the brain are intact. Ventricles: Mild ventriculomegaly. Bones/joints: Unremarkable. No acute fracture. Sinuses: Unremarkable as visualized. No acute sinusitis. Mastoid air cells: Unremarkable as visualized. No mastoid effusion. Orbits: Unremarkable as visualized. IMPRESSION: No evidence of acute intracranial pathology. Electronically signed by: Asuncion Alarcon MD 02/21/24 03:37 AM
[2024-02-21 04:02] LABS: Basophils # (auto) 0.01 K/uL (0.00-0.20); Basophils % (auto) 0.1 %; Hematocrit (blood only) 39.5 % (42.0-52.0); Hemoglobin 13.2 g/dl (14.0-18.0); Immature Granulocytes # (auto) 0.03 K/uL (0.01-0.20); Immature Granulocytes % (auto) 0.3 %; Lymphocytes % (auto) 6.2 %; Mean Corpuscular Hemoglobin 30.6 pg (25.0-34.0); Mean Corpuscular Hgb Conc 33.4 g/dL (32.0-36.0); Mean Corpuscular Volume 91.4 fL (80.0-100.0); Mean Platelet Volume 9.8 fL (9.4-12.4); Monocytes # (auto) 0.97 K/uL (0.11-0.59); Monocytes % (auto) 8.6 %; Neutrophils # (auto) 9.61 K/uL (1.40-6.50); Neutrophils % (auto) 84.8 %; Platelet Count 144 K/uL (130-400); RDW Coefficient of Variation 12.5 % (11.5-14.5); RDW Standard Deviation 41.9 fL (36.4-46.3); Red Blood Count 4.32 M/uL (4.70-6.10); White Blood Count 11.32 K/ul (4.8-10.8)
[2024-02-21 04:19] LABS: Albumin Globulin Ratio 1.1 (0.9-2); Albumin Level 3.7 gm/dl (3.4-5.0); Bilirubin,Total 0.6 mg/dl (0.2-1.0); Calcium 8.5 mg/dl (8.6-10.3); Chol HDL Ratio 3.6 (0-5); Creatinine Clr Calc Pharmacy 63.2 ml/min; Globulin 3.3 gm/dl (2.5-4.0); Potassium 4.6 mmol/L (3.5-5.1)
[2024-02-21] MEDS: PIPERACILLIN/TAZOBACTAM 4.5 GM/100 ML BAG IV SCH (04:21)
[2024-02-21 04:34] LABS: Partial Thromboplastin Ratio 0.8; Partial Thromboplastin Time 21 Seconds (21-31)
[2024-02-21] MEDS: ICU Protocol for HYPERglycemia SCH (07:29)
[2024-02-21 08:12] LABS: Estimated Average Glucose 134 mg/dl; Hemoglobin A1C 6.3 % (4.5-5.6)
--- NOTE | 2024-02-21 08:32 | Cardiology Consultation ---
Date of Consultation February 21, 2024 History of Present Illness Attending Physician: Maribell Millard MD Allergies Allergy/AdvReac Type Severity Reaction Status Date / Time latex Allergy Rash Verified 02/20/24 21:05 No Known Drug Allergies Allergy . Verified 02/20/24 21:04 Patient History Medical History (Updated 02/21/24 @ 03:09 by Manfred Foster MD) B12 deficiency COPD (chronic obstructive pulmonary disease) Hypothyroidism (acquired) Allergic symptoms Hyperlipidemia Social History Smoking Status: Never smoker Hx Alcohol Use: Yes Alcohol type: wine and hard liquor Hx Substance Use: No Preferred Language: Nepali Communication Ability: Effective Anesthesiologist Required: No Beliefs That Will Affect Care: None Current Living Situation: Spouse Other Information That Helps Us Care for You: No Feels Safe at Home: Yes Safety Concerns: Feels Safe At This Time Assistive Devices: Glasses Results & Data Vital Signs (Past 12 Hours) Vital Signs Temp Pulse Resp BP BP Pulse Ox O2 Del Method 02/21/24 07:20 65 22 98 02/21/24 06:06 37.0 C 71 23 97 02/21/24 06:00 141/81 H 02/21/24 06:00 141/81 H 02/21/24 05:48 36.9 C 84 31 H 96 02/21/24 05:33 36.8 C 67 24 96 02/21/24 05:30 136/85 02/21/24 05:30 136/85 02/21/24 05:18 36.8 C 63 22 98 02/21/24 05:03 36.8 C 62 22 98 02/21/24 05:00 129/77 02/21/24 05:00 129/77 02/21/24 04:48 36.8 C 71 22 100 02/21/24 04:39 36.8 C 64 22 98 02/21/24 04:15 65 22 98 02/21/24 04:00 126/81 02/21/24 04:00 36.9 C 65 22 98 02/21/24 04:00 02/21/24 03:32 37.1 C 66 22 98 02/21/24 03:30 120/80 02/21/24 03:29 37.1 C 66 22 98 02/21/24 03:08 37.1 C 65 22 98 02/21/24 03:00 115/76 02/21/24 02:56 37.2 C 65 22 99 02/21/24 02:41 37.2 C 67 22 98 02/21/24 02:02 37.2 C 63 22 99 02/21/24 02:00 114/76 02/21/24 02:00 114/76 02/21/24 01:26 37.1 C 67 22 99 02/21/24 01:08 37.1 C 69 22 98 02/21/24 01:00 122/81 02/21/24 01:00 122/81 02/21/24 00:56 37.1 C 65 22 99 02/21/24 00:40 118/77 02/21/24 00:40 118/77 02/21/24 00:32 37.0 C 63 22 98 02/21/24 00:30 126/78 02/21/24 00:30 126/78 02/21/24 00:30 126/78 02/21/24 00:30 126/78 02/21/24 00:26 37.1 C 63 22 98 02/21/24 00:20 138/81 02/21/24 00:20 138/81 02/21/24 00:14 37.1 C 60 22 98 02/21/24 00:10 143/83 H 02/21/24 00:00 67 02/21/24 00:00 148/84 H 02/21/24 00:00 148/84 H 02/21/24 00:00 148/84 H 02/21/24 00:00 02/20/24 23:56 37.1 C 22 98/67 L 96 Mechanical Vent 02/20/24 23:50 37.1 C 67 20 95 02/20/24 23:50 98/67 L 02/20/24 23:50 98/67 L 02/20/24 23:40 81 02/20/24 23:40 104/67 02/20/24 23:39 37.1 C 67 22 94 02/20/24 23:31 95/69 L 02/20/24 23:31 95/69 L 02/20/24 23:30 Mechanical Vent 02/20/24 23:30 37.1 C 77 22 93 02/20/24 23:20 150/92 H 02/20/24 23:20 150/92 H 02/20/24 23:20 150/92 H 02/20/24 23:12 83 23 99 02/20/24 23:10 128/81 02/20/24 23:10 128/81 02/20/24 23:10 71 29 H 100 02/20/24 23:06 79 31 H 97 02/20/24 22:00 58 L 22 142/84 H 98 02/20/24 21:54 69 24 93/62 L 98 02/20/24 21:45 72 20 93/63 L 98 02/20/24 21:39 73 20 97/69 L 98 02/20/24 21:33 75 20 110/76 98 02/20/24 21:30 77 20 110/76 99 02/20/24 21:24 79 22 125/80 98 02/20/24 21:18 68 26 H 159/98 H 98 02/20/24 21:15 77 21 128/83 99 02/20/24 21:03 83 20 122/80 99 02/20/24 20:58 35.9 C L 02/20/24 20:57 82 20 154/91 H 98 02/20/24 20:42 65 23 159/114 H 98 02/20/24 20:33 74 21 164/84 H 97 FiO2 02/21/24 07:20 50 02/21/24 06:06 50 02/21/24 06:00 02/21/24 06:00 02/21/24 05:48 02/21/24 05:33 02/21/24 05:30 02/21/24 05:30 02/21/24 05:18 02/21/24 05:03 50 02/21/24 05:00 02/21/24 05:00 02/21/24 04:48 02/21/24 04:39 02/21/24 04:15 50 02/21/24 04:00 02/21/24 04:00 50 02/21/24 04:00 50 02/21/24 03:32 02/21/24 03:30 02/21/24 03:29 02/21/24 03:08 02/21/24 03:00 50 02/21/24 02:56 02/21/24 02:41 02/21/24 02:02 50 02/21/24 02:00 02/21/24 02:00 02/21/24 01:26 02/21/24 01:08 50 02/21/24 01:00 02/21/24 01:00 02/21/24 00:56 02/21/24 00:40 02/21/24 00:40 02/21/24 00:32 02/21/24 00:30 02/21/24 00:30 02/21/24 00:30 02/21/24 00:30 02/21/24 00:26 02/21/24 00:20 02/21/24 00:20 02/21/24 00:14 02/21/24 00:10 02/21/24 00:00 02/21/24 00:00 50 02/21/24 00:00 02/21/24 00:00 02/21/24 00:00 50 02/20/24 23:56 02/20/24 23:50 50 02/20/24 23:50 02/20/24 23:50 02/20/24 23:40 02/20/24 23:40 02/20/24 23:39 02/20/24 23:31 02/20/24 23:31 02/20/24 23:30 50 02/20/24 23:30 02/20/24 23:20 02/20/24 23:20 02/20/24 23:20 02/20/24 23:12 02/20/24 23:10 02/20/24 23:10 02/20/24 23:10 50 02/20/24 23:06 50 02/20/24 22:00 70 02/20/24 21:54 70 02/20/24 21:45 70 02/20/24 21:39 70 02/20/24 21:33 70 02/20/24 21:30 02/20/24 21:24 02/20/24 21:18 70 02/20/24 21:15 70 02/20/24 21:03 70 02/20/24 20:58 02/20/24 20:57 70 02/20/24 20:42 70 02/20/24 20:33 70 Laboratory Results Abnormal lab results 02/20/24 02/20/24 02/20/24 Range/Units 19:08 19:09 19:16 WBC 11.76 H (4.8-10.8) K/ul RBC 4.15 L (4.70-6.10) M/uL Hgb 12.9 L (14.0-18.0) g/dl POC Hgb 13.6 L 12.9 L (14.0-18.0) g/dl Hct 38.1 L (42.0-52.0) % POC Hct 40 L 38 L (42-52) % Neut # (Auto) 7.84 H (1.40-6.50) K/uL Lymph # (Auto) (1.20-3.40) K/uL [place] # (Auto) 0.67 H (0.11-0.59) K/uL Immature Gran # (Auto) 0.23 H (0.01-0.20) K/uL POC pH 7.30 L (7.35-7.45) POC pO2 490 H (80-95) mmHg POC ABG O2 Sat 100.0 H (90-95) % POC Potassium 3.1 L 3.1 L (3.3-5.0) mmol/L Potassium 3.1 L (3.5-5.1) mmol/L Carbon Dioxide 20 L (21-32) mmol/L POC Total CO2 21 L 22 L (24-31) mmol/L Anion Gap 14 H (3-11) Creatinine 1.43 H (0.6-1.4) mg/dl POC Creatinine 1.5 H (0.6-1.3) mg/dl Glucose 247 H (70-99(Fasting)) mg/dl POC Glucose 250 H (70-99) mg/dl POC Glucose (other) 270 H (70-99) mg/dl Hemoglobin A1c (4.5-5.6) % Lactate 6.5 H* (0.4-2.0) mmol/L Calcium 8.2 L (8.6-10.3) mg/dl POC Ioniz Calcium [place] 1.10 L (1.12-1.32) mmol/l AST 156 H (13-39) U/L ALT 209 H (7-52) U/L Troponin I High Sens 41.8 H (0-20) pg/ml B-Natriuretic Peptide 103 H (0-100) pg/ml 02/20/24 02/20/24 02/21/24 Range/Units 23:24 23:58 00:34 WBC (4.8-10.8) K/ul RBC (4.70-6.10) M/uL Hgb (14.0-18.0) g/dl POC Hgb 13.3 L (14.0-18.0) g/dl Hct (42.0-52.0) % POC Hct 39 L (42-52) % Neut # (Auto) (1.40-6.50) K/uL Lymph # (Auto) (1.20-3.40) K/uL [place] # (Auto) (0.11-0.59) K/uL Immature Gran # (Auto) (0.01-0.20) K/uL POC pH (7.35-7.45) POC pO2 59 L (80-95) mmHg POC ABG O2 Sat 89.0 L (90-95) % POC Potassium (3.3-5.0) mmol/L Potassium (3.5-5.1) mmol/L Carbon Dioxide (21-32) mmol/L POC Total CO2 (24-31) mmol/L Anion Gap (3-11) Creatinine (0.6-1.4) mg/dl POC Creatinine (0.6-1.3) mg/dl Glucose (70-99(Fasting)) mg/dl POC Glucose 137 H (70-99) mg/dl POC Glucose (other) (70-99) mg/dl Hemoglobin A1c (4.5-5.6) % Lactate 3.7 H* (0.4-2.0) mmol/L Calcium (8.6-10.3) mg/dl POC Ioniz Calcium [place] (1.12-1.32) mmol/l AST (13-39) U/L ALT (7-52) U/L Troponin I High Sens 765.5 H* D (0-20) pg/ml B-Natriuretic Peptide (0-100) pg/ml 02/21/24 Range/Units 03:40 WBC 11.32 H (4.8-10.8) K/ul RBC 4.32 L (4.70-6.10) M/uL Hgb 13.2 L (14.0-18.0) g/dl POC Hgb (14.0-18.0) g/dl Hct 39.5 L (42.0-52.0) % POC Hct (42-52) % Neut # (Auto) 9.61 H (1.40-6.50) K/uL Lymph # (Auto) 0.70 L (1.20-3.40) K/uL [place] # (Auto) 0.97 H (0.11-0.59) K/uL Immature Gran # (Auto) (0.01-0.20) K/uL POC pH (7.35-7.45) POC pO2 (80-95) mmHg POC ABG O2 Sat (90-95) % POC Potassium (3.3-5.0) mmol/L Potassium (3.5-5.1) mmol/L Carbon Dioxide (21-32) mmol/L POC Total CO2 (24-31) mmol/L Anion Gap (3-11) Creatinine (0.6-1.4) mg/dl POC Creatinine (0.6-1.3) mg/dl Glucose 145 H (70-99(Fasting)) mg/dl POC Glucose (70-99) mg/dl POC Glucose (other) (70-99) mg/dl Hemoglobin A1c 6.3 H (4.5-5.6) % Lactate 2.5 H* (0.4-2.0) mmol/L Calcium 8.5 L (8.6-10.3) mg/dl POC Ioniz Calcium [place] (1.12-1.32) mmol/l AST 139 H (13-39) U/L ALT 202 H (7-52) U/L Troponin I High Sens 1216.0 H* D (0-20) pg/ml B-Natriuretic Peptide (0-100) pg/ml Medications Administered Current Inpatient Medications Albuterol (Albut/Ipratrop 3mg/0.5mg Neb 3 Ml Vial) 3 ml NEB Q2H PRN; Protocol PRN Reason: dyspnea Stop: 03/21/24 23:39 Norepinephrine Bitartrate (Levophed/D5w) 4 mg in 250 mls @ 0 mls/hr IV .Q0M [facility]; Protocol Stop: 03/21/24 19:59 Last Titration: 02/21/24 00:37 Dose: 0 mcg/kg/min, 0 mls/hr Propofol (Diprivan) 1,000 mg in 100 mls @ 12.6 mls/hr IV .Q7H57M [facility]; Protocol Stop: 02/23/24 21:14 Last Titration: 02/21/24 07:21 Dose: 20 mcg/kg/min, 12.6 mls/hr Pantoprazole Sodium (Protonix) 40 mg in 10 mls @ 5 mls/min IV BID [facility] Stop: 03/21/24 23:39 Last Admin: 02/21/24 00:09 Dose: 5 mls/min Piperacillin Sod/Tazobactam Sod (Zosyn) 4.5 gm in 100 mls @ 25 mls/hr IV Q8H [facility]; Protocol Stop: 02/28/24 03:59 Last Admin: 02/21/24 04:21 Dose: 25 mls/hr Parenteral Electrolytes (Plasma-Lyte A Ph 7.4) 1,000 mls @ 80 mls/hr IV .[id number] [facility] Stop: 02/22/24 00:29 Last Admin: 02/21/24 00:30 Dose: 80 mls/hr Acetaminophen (Ofirmev) 1,000 mg in 100 mls @ 400 mls/hr IV Q8H PRN; Protocol PRN Reason: pain or fever Stop: 02/24/24 00:59 Miscellaneous (Icu Protocol For Hyperglycemia) 1 each N/A ACHS [facility] Stop: 02/23/24 07:29 Last Admin: 02/21/24 07:29 Dose: Not Given Ondansetron HCl (Ondansetron Inj 2 Mg/Ml 2 Ml Vial) 4 mg IV Q6H PRN PRN Reason: NAUSEA/VOMITING Stop: 03/21/24 23:39 Propofol (Propofol Bolus From Bag) 20 mg IV Q5M PRN PRN Reason: Sedation Stop: 02/23/24 21:05
--- NOTE | 2024-02-21 09:31 | Cardiology Consultation ---
Date of Consultation February 21, 2024 Assessment & Plan (1) Cardiac arrest: (2) NSTEMI (non-ST elevated myocardial infarction): (3) Left ventricular systolic dysfunction (LVSD): (4) Anoxic brain injury: Plan Unfortunately his mental status will determine further care in this situation. If he wakes up will recommend cardiac cath. The ECHO and ECG suggest prox LAD disease. Recommend ASA BB if BP allows and IV heparin if no neurologic contraindications. Suggest Neuro eval and EEG to determine effects of hypoxia. Consider therapeutic hypothermia. Case discussed with Dr. Millard History of Present Illness Reason for Consultation: s/p cardiac arrest Requesting Physician: Dr. Millard Attending Physician: Maribell Millard MD History of Present Illness Thank you for the consult. This is an unfortunate 79 y/o man who experienced out of hospital cardiac arrest with suspected significant down time. ROSC was achieved however, remains unresponsive. He was seen at bedside while his ECHO was being done. He remains unresponsive, intubated and showing myoclonic jerk. His ECHO shows moderate LV dysfunction with significant wall motion abnormalities with anterior and lateral akinesis. Initial ECG shows RBBB with diffuse ST depression. Subsequent ECG show improvement of the ST depression Troponin 700+ initially. Allergies Allergy/AdvReac Type Severity Reaction Status Date / Time cholecalciferol (vitamin D3) Allergy Unknown On file w/ Unverified 02/21/24 09:29 [From Vitamin D3] [facility] no reaction listed ciprofloxacin Allergy Unknown On file w/ Unverified 02/21/24 09:29 [facility] no reaction listed delafloxacin Allergy Unknown On file w/ Unverified 02/21/24 09:29 [facility] no reaction listed ergocalciferol (vitamin D2) Allergy Unknown On file w/ Unverified 02/21/24 09:29 [From Vitamin D2] [facility] no reaction listed moxifloxacin Allergy Unknown On file w/ Unverified 02/21/24 09:29 [facility] no reaction listed Quinolones Allergy Unknown On file w/ Unverified 02/21/24 09:29 [facility] no reaction listed Sulfa (Sulfonamide Allergy Unknown On file w/ Unverified 02/21/24 09:29 Antibiotics) [facility] no reaction listed sulfacetamide [From Plexion] Allergy Unknown On file w/ Unverified 02/21/24 09:29 [facility] no reaction listed sulfasalazine Allergy Unknown On file w/ Unverified 02/21/24 09:29 [facility] no reaction listed sulfur [From Plexion] Allergy Unknown On file w/ Unverified 02/21/24 09:29 [facility] no reaction listed thyroid, pork Allergy Unknown On file w/ Unverified 02/21/24 09:29 [From Niva Thyroid] [facility] no reaction listed latex Allergy Rash Verified 02/21/24 09:29 Home Medications Medication Instructions Recorded Confirmed Type atorvastatin 10 mg tablet 10 mg PO DAILY 02/21/24 02/21/24 History cetirizine 10 mg tablet 10 mg PO DAILY PRN Allergy Symptoms 02/21/24 02/21/24 History levothyroxine 50 mcg tablet See Rx Instructions .Route .COMPLEX 02/21/24 02/21/24 History (Synthroid) Patient History Medical History B12 deficiency COPD (chronic obstructive pulmonary disease) Hypothyroidism (acquired) Allergic symptoms Hyperlipidemia Social History Smoking Status: Never smoker Hx Alcohol Use: Yes Alcohol type: wine and hard liquor Hx Substance Use: No Preferred Language: Slovenian Communication Ability: Effective Utilities Ground Worker Required: No Beliefs That Will Affect Care: None Current Living Situation: Spouse Other Information That Helps Us Care for You: No Feels Safe at Home: Yes Safety Concerns: Feels Safe At This Time Assistive Devices: Glasses Review of Systems Review of Systems: Unobtainable due to cognitive status Physical Exam Physical Exam: Unresponsive, intubated Eyes: pupils with minimal reaction Respiratory: lungs diminished BS b/l Cardiovascular: heart regular Results & Data Vital Signs (Past 12 Hours) Vital Signs Temp Pulse Resp BP BP Pulse Ox O2 Del Method 02/21/24 07:20 65 22 98 02/21/24 06:06 37.0 C 71 23 97 02/21/24 06:00 141/81 H 02/21/24 06:00 141/81 H 02/21/24 05:48 36.9 C 84 31 H 96 02/21/24 05:33 36.8 C 67 24 96 02/21/24 05:30 136/85 02/21/24 05:30 136/85 02/21/24 05:18 36.8 C 63 22 98 02/21/24 05:03 36.8 C 62 22 98 02/21/24 05:00 129/77 02/21/24 05:00 129/77 02/21/24 04:48 36.8 C 71 22 100 02/21/24 04:39 36.8 C 64 22 98 02/21/24 04:15 65 22 98 02/21/24 04:00 126/81 02/21/24 04:00 36.9 C 65 22 98 02/21/24 04:00 02/21/24 03:32 37.1 C 66 22 98 02/21/24 03:30 120/80 02/21/24 03:29 37.1 C 66 22 98 02/21/24 03:08 37.1 C 65 22 98 02/21/24 03:00 115/76 02/21/24 02:56 37.2 C 65 22 99 02/21/24 02:41 37.2 C 67 22 98 02/21/24 02:02 37.2 C 63 22 99 02/21/24 02:00 114/76 02/21/24 02:00 114/76 02/21/24 01:26 37.1 C 67 22 99 02/21/24 01:08 37.1 C 69 22 98 02/21/24 01:00 122/81 02/21/24 01:00 122/81 02/21/24 00:56 37.1 C 65 22 99 02/21/24 00:40 118/77 02/21/24 00:40 118/77 02/21/24 00:32 37.0 C 63 22 98 02/21/24 00:30 126/78 02/21/24 00:30 126/78 02/21/24 00:30 126/78 02/21/24 00:30 126/78 02/21/24 00:26 37.1 C 63 22 98 02/21/24 00:20 138/81 02/21/24 00:20 138/81 02/21/24 00:14 37.1 C 60 22 98 02/21/24 00:10 143/83 H 02/21/24 00:00 67 02/21/24 00:00 148/84 H 02/21/24 00:00 148/84 H 02/21/24 00:00 148/84 H 02/21/24 00:00 02/20/24 23:56 37.1 C 22 98/67 L 96 Mechanical Vent 02/20/24 23:50 37.1 C 67 20 95 02/20/24 23:50 98/67 L 02/20/24 23:50 98/67 L 02/20/24 23:40 81 02/20/24 23:40 104/67 02/20/24 23:39 37.1 C 67 22 94 02/20/24 23:31 95/69 L 02/20/24 23:31 95/69 L 02/20/24 23:30 Mechanical Vent 02/20/24 23:30 37.1 C 77 22 93 02/20/24 23:20 150/92 H 02/20/24 23:20 150/92 H 02/20/24 23:20 150/92 H 02/20/24 23:12 83 23 99 02/20/24 23:10 128/81 02/20/24 23:10 128/81 02/20/24 23:10 71 29 H 100 02/20/24 23:06 79 31 H 97 02/20/24 22:00 58 L 22 142/84 H 98 02/20/24 21:54 69 24 93/62 L 98 02/20/24 21:45 72 20 93/63 L 98 02/20/24 21:39 73 20 97/69 L 98 02/20/24 21:33 75 20 110/76 98 02/20/24 21:30 77 20 110/76 99 FiO2 02/21/24 07:20 50 02/21/24 06:06 50 02/21/24 06:00 02/21/24 06:00 02/21/24 05:48 02/21/24 05:33 02/21/24 05:30 02/21/24 05:30 02/21/24 05:18 02/21/24 05:03 50 02/21/24 05:00 02/21/24 05:00 02/21/24 04:48 02/21/24 04:39 02/21/24 04:15 50 02/21/24 04:00 02/21/24 04:00 50 02/21/24 04:00 50 02/21/24 03:32 02/21/24 03:30 02/21/24 03:29 02/21/24 03:08 02/21/24 03:00 50 02/21/24 02:56 02/21/24 02:41 02/21/24 02:02 50 02/21/24 02:00 02/21/24 02:00 02/21/24 01:26 02/21/24 01:08 50 02/21/24 01:00 02/21/24 01:00 02/21/24 00:56 02/21/24 00:40 02/21/24 00:40 02/21/24 00:32 02/21/24 00:30 02/21/24 00:30 02/21/24 00:30 02/21/24 00:30 02/21/24 00:26 02/21/24 00:20 02/21/24 00:20 02/21/24 00:14 02/21/24 00:10 02/21/24 00:00 02/21/24 00:00 50 02/21/24 00:00 02/21/24 00:00 02/21/24 00:00 50 02/20/24 23:56 02/20/24 23:50 50 02/20/24 23:50 02/20/24 23:50 02/20/24 23:40 02/20/24 23:40 02/20/24 23:39 02/20/24 23:31 02/20/24 23:31 02/20/24 23:30 50 02/20/24 23:30 02/20/24 23:20 02/20/24 23:20 02/20/24 23:20 02/20/24 23:12 02/20/24 23:10 02/20/24 23:10 02/20/24 23:10 50 02/20/24 23:06 50 02/20/24 22:00 70 02/20/24 21:54 70 02/20/24 21:45 70 02/20/24 21:39 70 02/20/24 21:33 70 02/20/24 21:30 Laboratory Results Abnormal lab results 02/20/24 02/20/24 02/20/24 Range/Units 19:08 19:09 19:16 WBC 11.76 H (4.8-10.8) K/ul RBC 4.15 L (4.70-6.10) M/uL Hgb 12.9 L (14.0-18.0) g/dl POC Hgb 13.6 L 12.9 L (14.0-18.0) g/dl Hct 38.1 L (42.0-52.0) % POC Hct 40 L 38 L (42-52) % Neut # (Auto) 7.84 H (1.40-6.50) K/uL Lymph # (Auto) (1.20-3.40) K/uL [place] # (Auto) 0.67 H (0.11-0.59) K/uL Immature Gran # (Auto) 0.23 H (0.01-0.20) K/uL POC pH 7.30 L (7.35-7.45) POC pO2 490 H (80-95) mmHg POC ABG O2 Sat 100.0 H (90-95) % POC Potassium 3.1 L 3.1 L (3.3-5.0) mmol/L Potassium 3.1 L (3.5-5.1) mmol/L Carbon Dioxide 20 L (21-32) mmol/L POC Total CO2 21 L 22 L (24-31) mmol/L Anion Gap 14 H (3-11) Creatinine 1.43 H (0.6-1.4) mg/dl POC Creatinine 1.5 H (0.6-1.3) mg/dl Glucose 247 H (70-99(Fasting)) mg/dl POC Glucose 250 H (70-99) mg/dl POC Glucose (other) 270 H (70-99) mg/dl Hemoglobin A1c (4.5-5.6) % Lactate 6.5 H* (0.4-2.0) mmol/L Calcium 8.2 L (8.6-10.3) mg/dl POC Ioniz Calcium [place] 1.10 L (1.12-1.32) mmol/l AST 156 H (13-39) U/L ALT 209 H (7-52) U/L Troponin I High Sens 41.8 H (0-20) pg/ml B-Natriuretic Peptide 103 H (0-100) pg/ml 02/20/24 02/20/24 02/21/24 Range/Units 23:24 23:58 00:34 WBC (4.8-10.8) K/ul RBC (4.70-6.10) M/uL Hgb (14.0-18.0) g/dl POC Hgb 13.3 L (14.0-18.0) g/dl Hct (42.0-52.0) % POC Hct 39 L (42-52) % Neut # (Auto) (1.40-6.50) K/uL Lymph # (Auto) (1.20-3.40) K/uL [place] # (Auto) (0.11-0.59) K/uL Immature Gran # (Auto) (0.01-0.20) K/uL POC pH (7.35-7.45) POC pO2 59 L (80-95) mmHg POC ABG O2 Sat 89.0 L (90-95) % POC Potassium (3.3-5.0) mmol/L Potassium (3.5-5.1) mmol/L Carbon Dioxide (21-32) mmol/L POC Total CO2 (24-31) mmol/L Anion Gap (3-11) Creatinine (0.6-1.4) mg/dl POC Creatinine (0.6-1.3) mg/dl Glucose (70-99(Fasting)) mg/dl POC Glucose 137 H (70-99) mg/dl POC Glucose (other) (70-99) mg/dl Hemoglobin A1c (4.5-5.6) % Lactate 3.7 H* (0.4-2.0) mmol/L Calcium (8.6-10.3) mg/dl POC Ioniz Calcium [place] (1.12-1.32) mmol/l AST (13-39) U/L ALT (7-52) U/L Troponin I High Sens 765.5 H* D (0-20) pg/ml B-Natriuretic Peptide (0-100) pg/ml 02/21/24 Range/Units 03:40 WBC 11.32 H (4.8-10.8) K/ul RBC 4.32 L (4.70-6.10) M/uL Hgb 13.2 L (14.0-18.0) g/dl POC Hgb (14.0-18.0) g/dl Hct 39.5 L (42.0-52.0) % POC Hct (42-52) % Neut # (Auto) 9.61 H (1.40-6.50) K/uL Lymph # (Auto) 0.70 L (1.20-3.40) K/uL [place] # (Auto) 0.97 H (0.11-0.59) K/uL Immature Gran # (Auto) (0.01-0.20) K/uL POC pH (7.35-7.45) POC pO2 (80-95) mmHg POC ABG O2 Sat (90-95) % POC Potassium (3.3-5.0) mmol/L Potassium (3.5-5.1) mmol/L Carbon Dioxide (21-32) mmol/L POC Total CO2 (24-31) mmol/L Anion Gap (3-11) Creatinine (0.6-1.4) mg/dl POC Creatinine (0.6-1.3) mg/dl Glucose 145 H (70-99(Fasting)) mg/dl POC Glucose (70-99) mg/dl POC Glucose (other) (70-99) mg/dl Hemoglobin A1c 6.3 H (4.5-5.6) % Lactate 2.5 H* (0.4-2.0) mmol/L Calcium 8.5 L (8.6-10.3) mg/dl POC Ioniz Calcium [place] (1.12-1.32) mmol/l AST 139 H (13-39) U/L ALT 202 H (7-52) U/L Troponin I High Sens 1216.0 H* D (0-20) pg/ml B-Natriuretic Peptide (0-100) pg/ml ECG Additional Comments: as above
--- NOTE | 2024-02-21 10:56 | Critical Care Progress Note ---
Date of Service February 21, 2024 Assessment & Plan (1) Cardiac arrest: Plan: Reason Critically Ill: 79-year-old male presents to the ICU post [facility] cardiac arrest where he received multiple rounds of CPR and epinephrine via EMS. He was reported to received some CPR by the neighbor prior to EMS arrival but unsure of exact downtime. He was on responsive after ROSC was achieved And emergently intubated prior to arrival to the hospital. Suspect underlying anoxic injury. Was briefly on vasopressors but now weaned off. Admitted to ICU for further management at this time. 24-hour events: Patient's propofol was discontinued. EEG is pending. He is exhibiting significant myoclonic jerking. Recommendations: Neuro - Likely significant anoxic injury. Formal EEG pending. Will defer Keppra until EEG is read. Initial MRI of the brain showed no significant pathology however it was likely too soon to detect ischemic changes. Clinically the patient has evidence of significant neurological deficits. Neurology consult Cardiac - Cardiac arrest likely ischemic. Await formal echocardiogram. Cardiology consultation reviewed. Given the patient's significant neurological findings, seems reasonable to hold off on cardiac catheterization currently. Will continue aspirin beta-cresencio and heparin. Lactic acidosis elevated on presentation consistent with prolonged downtime. Decreasing. Respiratory - Acute hypoxemic respiratory failureno previous history of pulmonary disease. Likely secondary to aspiration pneumonitis following cardiac arrest. Continue current antibiotics and continue mechanical ventilation pending improvement in patient's neurological status GI - N.p.o. for now RENAL/LYTES - AKIcreatinine 1.43 without previous baseline to compare. Suspect this is prer enal following cardiac arrest. - No significant electrolyte abnormalities or acidosis to indicate bicarb. Continue with IV fluid resuscitation -Maintain maps greater than 65 to ensure renal perfusion -Avoid nephrotoxins and renally dose medications - Monitor routine BMPs. Replete electrolytes as indicated Lactic acidosis Likely secondary to cardiac arrest. Aspiration pneumonitis likely playing a role as well. Currently downtrending, trend till normal. - Foleystrict I's and O's ENDO - No history of diabetes or thyroid disease. ICU hyperglycemic protocol HEME - H&H stable, monitor routine CBC ID - Day #2 empiric Zosyn for aspiration pneumonia. Check respiratory cultures. LINES/IV ACCESS - Peripheral IVs. Patient currently weaned off vasopressor support, no indication for central line at this time DVT PROPHYLAXIS - SCDs CODE STATUS: Per conversation with the patient's family at bedside Conditional code with no additional CPR/defibrillation in the event of further cardiac arrest. Okay with mechanical ventilation for now I have personally spent 78 minutes of critical care time in the direct management of this patient. This is a life/limb threatening event. This includes time spent evaluating patient, direct bedside care, chart review, placing orders, interpretation of diagnostic studies, discussion with consultants, patient, and family members, as well as other required patient management activities. This time is exclusive of all separately billable procedures, and teaching time and separate from and in addition to any other critical care service time. Thank you for allowing us to participate in the care of this patient. Please refer to my attending physician's documentation for any further recommendations. (2) Anoxic brain injury: (3) Lactic acidosis: (4) Acute hypoxic respiratory failure: (5) Aspiration pneumonitis: Admission and Anticipated Discharge Date Admission Date: February 20, 2024 Subjective Patient seen and examined. Reviewed with bedside critical care nurse and on multidisciplinary rounds. Review of Systems Review of Systems: Unobtainable due to reduced consciousness Physical Exam Constitutional: WD/WN, vitals as above Neck: trachea midline, no thyromegaly Respiratory: normal respiratory effort, lungs clear to auscultation Cardiovascular: RRR, no murmur, no edema Gastrointestinal (Abdomen): normal bowel sounds, soft, nontender, no hepatosplenomegaly Musculoskeletal: Extremities: extremities normal to inspection Skin: no rashes, warm and dry Neurologic: Patient demonstrates significant myoclonic jerking. He has minimal corneal reflexes. Pupillary reflexes are equivalent. Lymphatic: no cervical lymphadenopathy Results & Data Results & Data Vital Signs (Past 12 Hours) Vital Signs Temp Pulse Resp BP BP Pulse Ox O2 Del Method 02/21/24 10:19 92 H 33 H 95 02/21/24 10:00 37.2 C 89 17 93 02/21/24 10:00 163/88 H 02/21/24 10:00 163/88 H 02/21/24 09:36 37.0 C 96 H 31 H 95 02/21/24 09:31 179/91 H 02/21/24 09:31 179/91 H 02/21/24 09:27 Mechanical Vent 02/21/24 09:12 36.8 C 82 17 97 02/21/24 09:00 36.8 C 69 22 98 02/21/24 08:35 02/21/24 08:30 120/71 02/21/24 08:30 120/71 02/21/24 08:30 120/71 02/21/24 08:30 36.7 C 57 L 22 97 02/21/24 08:09 36.7 C 60 22 97 02/21/24 08:00 125/74 02/21/24 07:57 36.8 C 60 22 97 02/21/24 07:33 36.8 C 64 22 97 02/21/24 07:30 117/82 02/21/24 07:20 65 22 98 02/21/24 06:57 36.9 C 62 23 98 02/21/24 06:33 37.0 C 65 22 98 02/21/24 06:30 123/78 02/21/24 06:30 123/78 02/21/24 06:30 123/78 02/21/24 06:30 123/78 02/21/24 06:27 37.0 C 66 22 97 02/21/24 06:06 37.0 C 71 23 97 02/21/24 06:00 141/81 H 02/21/24 06:00 141/81 H 02/21/24 05:48 36.9 C 84 31 H 96 02/21/24 05:33 36.8 C 67 24 96 02/21/24 05:30 136/85 02/21/24 05:30 136/85 02/21/24 05:18 36.8 C 63 22 98 02/21/24 05:03 36.8 C 62 22 98 02/21/24 05:00 129/77 02/21/24 05:00 129/77 02/21/24 04:48 36.8 C 71 22 100 02/21/24 04:39 36.8 C 64 22 98 02/21/24 04:15 65 22 98 02/21/24 04:00 126/81 02/21/24 04:00 36.9 C 65 22 98 02/21/24 04:00 02/21/24 03:32 37.1 C 66 22 98 02/21/24 03:30 120/80 02/21/24 03:29 37.1 C 66 22 98 02/21/24 03:08 37.1 C 65 22 98 02/21/24 03:00 115/76 02/21/24 02:56 37.2 C 65 22 99 02/21/24 02:41 37.2 C 67 22 98 02/21/24 02:02 37.2 C 63 22 99 02/21/24 02:00 114/76 02/21/24 02:00 114/76 02/21/24 01:26 37.1 C 67 22 99 02/21/24 01:08 37.1 C 69 22 98 02/21/24 01:00 122/81 02/21/24 01:00 122/81 02/21/24 00:56 37.1 C 65 22 99 02/21/24 00:40 118/77 02/21/24 00:40 118/77 02/21/24 00:32 37.0 C 63 22 98 02/21/24 00:30 126/78 02/21/24 00:30 126/78 02/21/24 00:30 126/78 02/21/24 00:30 126/78 02/21/24 00:26 37.1 C 63 22 98 02/21/24 00:20 138/81 02/21/24 00:20 138/81 02/21/24 00:14 37.1 C 60 22 98 02/21/24 00:10 143/83 H 02/21/24 00:00 67 02/21/24 00:00 148/84 H 02/21/24 00:00 148/84 H 02/21/24 00:00 148/84 H 02/21/24 00:00 02/20/24 23:56 37.1 C 22 98/67 L 96 Mechanical Vent 02/20/24 23:50 37.1 C 67 20 95 02/20/24 23:50 98/67 L 02/20/24 23:50 98/67 L 02/20/24 23:40 81 02/20/24 23:40 104/67 02/20/24 23:39 37.1 C 67 22 94 02/20/24 23:31 95/69 L 02/20/24 23:31 95/69 L 02/20/24 23:30 Mechanical Vent 02/20/24 23:30 37.1 C 77 22 93 02/20/24 23:20 150/92 H 02/20/24 23:20 150/92 H 02/20/24 23:20 150/92 H 02/20/24 23:12 83 23 99 02/20/24 23:10 128/81 02/20/24 23:10 128/81 02/20/24 23:10 71 29 H 100 02/20/24 23:06 79 31 H 97 FiO2 02/21/24 10:19 40 02/21/24 10:00 02/21/24 10:00 02/21/24 10:00 02/21/24 09:36 02/21/24 09:31 02/21/24 09:31 02/21/24 09:27 0.5 02/21/24 09:12 02/21/24 09:00 02/21/24 08:35 0.5 02/21/24 08:30 02/21/24 08:30 02/21/24 08:30 02/21/24 08:30 02/21/24 08:09 02/21/24 08:00 02/21/24 07:57 02/21/24 07:33 02/21/24 07:30 02/21/24 07:20 50 02/21/24 06:57 02/21/24 06:33 02/21/24 06:30 02/21/24 06:30 02/21/24 06:30 02/21/24 06:30 02/21/24 06:27 02/21/24 06:06 50 02/21/24 06:00 02/21/24 06:00 02/21/24 05:48 02/21/24 05:33 02/21/24 05:30 02/21/24 05:30 02/21/24 05:18 02/21/24 05:03 50 02/21/24 05:00 02/21/24 05:00 02/21/24 04:48 02/21/24 04:39 02/21/24 04:15 50 02/21/24 04:00 02/21/24 04:00 50 02/21/24 04:00 50 02/21/24 03:32 02/21/24 03:30 02/21/24 03:29 02/21/24 03:08 02/21/24 03:00 50 02/21/24 02:56 02/21/24 02:41 02/21/24 02:02 50 02/21/24 02:00 02/21/24 02:00 02/21/24 01:26 02/21/24 01:08 50 02/21/24 01:00 02/21/24 01:00 02/21/24 00:56 02/21/24 00:40 02/21/24 00:40 02/21/24 00:32 02/21/24 00:30 02/21/24 00:30 02/21/24 00:30 02/21/24 00:30 02/21/24 00:26 02/21/24 00:20 02/21/24 00:20 02/21/24 00:14 02/21/24 00:10 02/21/24 00:00 02/21/24 00:00 50 02/21/24 00:00 02/21/24 00:00 02/21/24 00:00 50 02/20/24 23:56 02/20/24 23:50 50 02/20/24 23:50 02/20/24 23:50 02/20/24 23:40 02/20/24 23:40 02/20/24 23:39 02/20/24 23:31 02/20/24 23:31 02/20/24 23:30 50 02/20/24 23:30 02/20/24 23:20 02/20/24 23:20 02/20/24 23:20 02/20/24 23:12 02/20/24 23:10 02/20/24 23:10 02/20/24 23:10 50 02/20/24 23:06 50 Critical Care Results & Data Vital Signs (Past 12 Hours) Vital Signs Temp Pulse Resp BP BP Pulse Ox O2 Del Method 02/21/24 10:19 92 H 33 H 95 02/21/24 10:00 37.2 C 89 17 93 02/21/24 10:00 163/88 H 02/21/24 10:00 163/88 H 02/21/24 09:36 37.0 C 96 H 31 H 95 02/21/24 09:31 179/91 H 02/21/24 09:31 179/91 H 02/21/24 09:27 Mechanical Vent 02/21/24 09:12 36.8 C 82 17 97 02/21/24 09:00 36.8 C 69 22 98 02/21/24 08:35 02/21/24 08:30 120/71 02/21/24 08:30 120/71 02/21/24 08:30 120/71 02/21/24 08:30 36.7 C 57 L 22 97 02/21/24 08:09 36.7 C 60 22 97 02/21/24 08:00 125/74 02/21/24 07:57 36.8 C 60 22 97 02/21/24 07:33 36.8 C 64 22 97 02/21/24 07:30 117/82 02/21/24 07:20 65 22 98 02/21/24 06:57 36.9 C 62 23 98 02/21/24 06:33 37.0 C 65 22 98 02/21/24 06:30 123/78 02/21/24 06:30 123/78 02/21/24 06:30 123/78 02/21/24 06:30 123/78 02/21/24 06:27 37.0 C 66 22 97 02/21/24 06:06 37.0 C 71 23 97 02/21/24 06:00 141/81 H 02/21/24 06:00 141/81 H 02/21/24 05:48 36.9 C 84 31 H 96 02/21/24 05:33 36.8 C 67 24 96 02/21/24 05:30 136/85 02/21/24 05:30 136/85 02/21/24 05:18 36.8 C 63 22 98 02/21/24 05:03 36.8 C 62 22 98 02/21/24 05:00 129/77 02/21/24 05:00 129/77 02/21/24 04:48 36.8 C 71 22 100 02/21/24 04:39 36.8 C 64 22 98 02/21/24 04:15 65 22 98 02/21/24 04:00 126/81 02/21/24 04:00 36.9 C 65 22 98 02/21/24 04:00 02/21/24 03:32 37.1 C 66 22 98 02/21/24 03:30 120/80 02/21/24 03:29 37.1 C 66 22 98 02/21/24 03:08 37.1 C 65 22 98 02/21/24 03:00 115/76 02/21/24 02:56 37.2 C 65 22 99 02/21/24 02:41 37.2 C 67 22 98 02/21/24 02:02 37.2 C 63 22 99 02/21/24 02:00 114/76 02/21/24 02:00 114/76 02/21/24 01:26 37.1 C 67 22 99 02/21/24 01:08 37.1 C 69 22 98 02/21/24 01:00 122/81 02/21/24 01:00 122/81 02/21/24 00:56 37.1 C 65 22 99 02/21/24 00:40 118/77 02/21/24 00:40 118/77 02/21/24 00:32 37.0 C 63 22 98 02/21/24 00:30 126/78 02/21/24 00:30 126/78 02/21/24 00:30 126/78 02/21/24 00:30 126/78 02/21/24 00:26 37.1 C 63 22 98 02/21/24 00:20 138/81 02/21/24 00:20 138/81 02/21/24 00:14 37.1 C 60 22 98 02/21/24 00:10 143/83 H 02/21/24 00:00 67 02/21/24 00:00 148/84 H 02/21/24 00:00 148/84 H 02/21/24 00:00 148/84 H 02/21/24 00:00 02/20/24 23:56 37.1 C 22 98/67 L 96 Mechanical Vent 02/20/24 23:50 37.1 C 67 20 95 02/20/24 23:50 98/67 L 02/20/24 23:50 98/67 L 02/20/24 23:40 81 02/20/24 23:40 104/67 02/20/24 23:39 37.1 C 67 22 94 02/20/24 23:31 95/69 L 02/20/24 23:31 95/69 L 02/20/24 23:30 Mechanical Vent 02/20/24 23:30 37.1 C 77 22 93 02/20/24 23:20 150/92 H 02/20/24 23:20 150/92 H 02/20/24 23:20 150/92 H 02/20/24 23:12 83 23 99 02/20/24 23:10 128/81 02/20/24 23:10 128/81 02/20/24 23:10 71 29 H 100 FiO2 02/21/24 10:19 40 02/21/24 10:00 02/21/24 10:00 02/21/24 10:00 02/21/24 09:36 02/21/24 09:31 02/21/24 09:31 02/21/24 09:27 0.5 02/21/24 09:12 02/21/24 09:00 02/21/24 08:35 0.5 02/21/24 08:30 02/21/24 08:30 02/21/24 08:30 02/21/24 08:30 02/21/24 08:09 02/21/24 08:00 02/21/24 07:57 02/21/24 07:33 02/21/24 07:30 02/21/24 07:20 50 02/21/24 06:57 02/21/24 06:33 02/21/24 06:30 02/21/24 06:30 02/21/24 06:30 02/21/24 06:30 02/21/24 06:27 02/21/24 06:06 50 02/21/24 06:00 02/21/24 06:00 02/21/24 05:48 02/21/24 05:33 02/21/24 05:30 02/21/24 05:30 02/21/24 05:18 02/21/24 05:03 50 02/21/24 05:00 02/21/24 05:00 02/21/24 04:48 02/21/24 04:39 02/21/24 04:15 50 02/21/24 04:00 02/21/24 04:00 50 02/21/24 04:00 50 02/21/24 03:32 02/21/24 03:30 02/21/24 03:29 02/21/24 03:08 02/21/24 03:00 50 02/21/24 02:56 02/21/24 02:41 02/21/24 02:02 50 02/21/24 02:00 02/21/24 02:00 02/21/24 01:26 02/21/24 01:08 50 02/21/24 01:00 02/21/24 01:00 02/21/24 00:56 02/21/24 00:40 02/21/24 00:40 02/21/24 00:32 02/21/24 00:30 02/21/24 00:30 02/21/24 00:30 02/21/24 00:30 02/21/24 00:26 02/21/24 00:20 02/21/24 00:20 02/21/24 00:14 02/21/24 00:10 02/21/24 00:00 02/21/24 00:00 50 02/21/24 00:00 02/21/24 00:00 02/21/24 00:00 50 02/20/24 23:56 02/20/24 23:50 50 02/20/24 23:50 02/20/24 23:50 02/20/24 23:40 02/20/24 23:40 02/20/24 23:39 02/20/24 23:31 02/20/24 23:31 02/20/24 23:30 50 02/20/24 23:30 02/20/24 23:20 02/20/24 23:20 02/20/24 23:20 02/20/24 23:12 02/20/24 23:10 02/20/24 23:10 02/20/24 23:10 50 Lab & Micro Results (Past 24 Hours) RBC 4.32 M/uL (4.70-6.10) L 02/21/24 WBC 11.32 K/ul (4.8-10.8) H 02/21/24 Hgb 13.2 g/dl (14.0-18.0) L 02/21/24 Hct 39.5 % (42.0-52.0) L 02/21/24 MCV 91.4 fL (80.0-100.0) 02/21/24 MCH 30.6 pg (25.0-34.0) 02/21/24 MCHC 33.4 g/dL (32.0-36.0) 02/21/24 RDW Standard Deviation 41.9 fL (36.4-46.3) 02/21/24 RDW Coefficient of Variation 12.5 % (11.5-14.5) 02/21/24 Plt Count 144 K/uL (130-400) 02/21/24 MPV 9.8 fL (9.4-12.4) 02/21/24 Neutrophils (%) (Auto) 84.8 % 02/21/24 Lymphocytes (%) (Auto) 6.2 % 02/21/24 Monocytes # (Auto) 0.97 K/uL (0.11-0.59) H 02/21/24 Eosinophils # (Auto) 0.00 K/uL (0.00-0.50) 02/21/24 Immature Granulocyte % (Auto) 0.3 % 02/21/24 Neutrophils # (Auto) 9.61 K/uL (1.40-6.50) H 02/21/24 Lymphocytes # (Auto) 0.70 K/uL (1.20-3.40) L 02/21/24 Monocytes # (Auto) 0.97 K/uL (0.11-0.59) H 02/21/24 Eosinophils # (Auto) 0.00 K/uL (0.00-0.50) 02/21/24 Basophils # (Auto) 0.01 K/uL (0.00-0.20) 02/21/24 Immature Granulocyte # (Auto) 0.03 K/uL (0.01-0.20) 4 Na 137 mmol/L (136-145) 02/21/24 K 4.6 mmol/L (3.5-5.1) 02/21/24 Cl 106 mmol/L (98-107) 02/21/24 CO2 23 mmol/L (21-32) 02/21/24 Anion Gap 8 (3-11) 02/21/24 BUN 19 mg/dl (6-23) 02/21/24 Creatinine 1.12 mg/dl (0.6-1.4) 02/21/24 BUN/Creatinine Ratio 17.0 (10-20) 02/21/24 Glu 145 mg/dl (70-99(Fasting)) H 02/21/24 Ca 8.5 mg/dl (8.6-10.3) L 02/21/24 Total Bilirubin 0.6 mg/dl (0.2-1.0) 02/21/24 Direct Bilirubin 0.1 mg/dl (0-0.2) 02/20/24 AST 139 U/L (13-39) H 02/21/24 ALT 202 U/L (7-52) H 02/21/24 Alkaline Phosphatase 61 U/L (34-104) 02/21/24 TP 7.0 gm/dl (6.0-8.3) 02/21/24 Albumin 3.7 gm/dl (3.4-5.0) 02/21/24 Globulin 3.3 gm/dl (2.5-4.0) 02/21/24 Albumin/Globulin Ratio 1.1 (0.9-2) 02/21/24 Mg 2.0 mg/dl (1.7-2.4) 02/21/24 03:40 Calcium Level 8.5 mg/dl (8.6-10.3) L 02/21/24 03:40 Prothromb Time International Ratio 1.0 (0.9-1.1) 02/21/24 03:3 9 Raul Test Pass 02/20/24 23:58 Diagnostic Findings (Past 24 Hours) Cervical Spine CT 02/20/24 19:16 Exam(s): CT C SPINE EXAM: CT Cervical Spine Without Intravenous Contrast CLINICAL HISTORY: Reason for exam: ROSC. head trauma, fall. TECHNIQUE: Axial computed tomography images of the cervical spine without intravenous contrast. Automated exposure control was utilized for the study. A dose lowering technique was utilized adhering to the principles of ALARA. COMPARISON: None FINDINGS: Motion artifact. Endotracheal intubation. Vertebrae: Mild levoscoliosis. C4 vertebral minimal retrolisthesis. Otherwise no segmental malalignment. Osteopenia. No acute fracture. Discs/spinal canal/neural foramina: C5-C7 levels moderately advanced degenerative spondylitic changes with variable degrees of neuroforaminal and spinal canal stenosis. Soft tissues: Grossly unremarkable. . IMPRESSION: No acute fracture or traumatic malalignment of the cervical spine is noted . Electronically signed by: Danette Salazar MD, CHRISTOPH 02/21/24 01:[address] 02/20/24 19:16 Exam(s): CT HEAD Without Contrast EXAM: CT Head Without Intravenous Contrast CLINICAL HISTORY: Reason for exam: ROSC. head trauma, fall. TECHNIQUE: Axial computed tomography images of the head/brain without intravenous contrast. Automated exposure control was utilized for the study. A dose lowering technique was utilized adhering to the principles of ALARA. COMPARISON: None. FINDINGS: Diagnostic sensitivity of the exam is reduced by motion/beam hardening artifacts Brain: Grossly no acute intracranial hemorrhage is evident. There is no mass-effect or midline shift. Johnson-white matter differentiation is maintained. Age-related diffuse cerebral atrophy with widening of the extra-axial spaces/ventricular dilatation. Bilateral senescent punctate basal ganglion calcifications. Bilateral mild/moderate periventricular white matter small vessel ischemic changes. Bones/joints: Unremarkable. No acute fracture. Soft tissues: Unremarkable. Anteriorly thick densely calcified interhemispheric plaque. Sinuses: Unremarkable as visualized. No acute sinusitis. Mastoid air cells: Unremarkable as visualized. No mastoid effusion. IMPRESSION: Limited exam. No conclusive acute intracranial abnormality identified. Significant chronic involutional changes of the brain. . Electronically signed by: Danette Salazar MD, DABR 02/20/24 23:02 PM Chest X-Ray 02/20/24 19:17 Exam(s): XR CXR 1 VIEW EXAM: XR Chest, 1 View CLINICAL HISTORY: Reason for exam: ROSC, intubation. TECHNIQUE: Frontal view of the chest. COMPARISON: None FINDINGS: Hardware: Endotracheal tube terminates in the region of the proximal right mainstem bronchus. Recommend approximately 4-5 cm of retraction. Lungs/pleura: Opacities bilaterally. No pleural effusion or pneumothorax. Heart/mediastinum: Mild enlargement of the cardiac silhouette. Soft tissues: Unremarkable. Bones: No acute fracture. Degenerative changes of the spine. Upper abdomen: Normal. IMPRESSION: 1. Endotracheal tube terminates in the region of the proximal right mainstem bronchus. Recommend approximately 4-5 cm of retraction. 2. Opacities bilaterally may represent atelectasis versus edema versus infectious/inflammatory process. Electronically signed by: Rloly Carmen M.D. 02/21/24 01:59 AM Chest CTA 02/20/24 19:37 Exam(s): CTA CHEST IV Amt: 90 ml opti 320 EXAM: CT Angiography Chest With Intravenous Contrast CLINICAL HISTORY: Reason for exam: PE. TECHNIQUE: Axial computed tomographic angiography images of the chest with intravenous contrast. Automated exposure control was utilized for the study. A dose lowering technique was utilized adhering to the principles of ALARA. MIP reconstructed images were created and reviewed. COMPARISON: X-ray chest: 02/20/2024 FINDINGS: Patient is intubated. Pulmonary arteries: Unremarkable. No pulmonary embolism. Aorta: No acute findings. No thoracic aortic aneurysm. Lungs: Central airways are patent. Bilateral mild/moderate bronchial wall thickening. Posteriorly in both lungs, predominantly basilar subpleural consolidation/atelectasis and interstitial infiltrates are seen with hilar extension LT>RT. No discernible mass. Pleural space: Posteriorly minimal/ trace right pleural fluid. No significant effusion. No pneumothorax. Elevated right hemidiaphragm Heart: Cardiomegaly. Calcified left coronary arterial atherosclerosis.. No significant pericardial effusion. No evidence of RV dysfunction. Bones/joints: Osteopenia. No acute osseous findings. Increased thoracic kyphosis. Degenerative thoracic spondylolysis. Soft tissues: Unremarkable. Lymph nodes: Unremarkable. No enlarged lymph nodes. IMPRESSION: No evidence of pulmonary embolism or aortic aneurysm. Bilateral bronchial wall thickening. Posteriorly in both lungs predominantly basilar regions subpleural consolidation/atelectasis and interstitial infiltrates with hilar extension demonstrated, concerning for aspiration. Recommend clinical correlation/follow-up. . Electronically signed by: Danette Salazar MD, DABR 02/21/24 00:51 AM Brain MRI 02/20/24 21:38 Exam(s): MRI HEAD Without Contrast EXAM: MR Head Without Intravenous Contrast CLINICAL HISTORY: Reason for exam: acute LOC, now intubated. TECHNIQUE: Magnetic resonance images of the head/brain without intravenous contrast in multiple planes. COMPARISON: Prior head CT from February 20, 2024. FINDINGS: Brain: Minimal nonspecific white matter changes. No mass. No hemorrhage. No acute infarct. The flow was of the base of the brain are intact. Ventricles: Mild ventriculomegaly. Bones/joints: Unremarkable. No acute fracture. Sinuses: Unremarkable as visualized. No acute sinusitis. Mastoid air cells: Unremarkable as visualized. No mastoid effusion. Orbits: Unremarkable as visualized. IMPRESSION: No evidence of acute intracranial pathology. Electronically signed by: Asuncion Alarcon MD 02/21/24 03:37 AM I & O Totals 24 Hours 02/20/24 02/21/24 02/22/24 06:59 06:59 05:59 Intake Total 1534.423 / 1534.423 188.20 / 188.20 Output Total 740 / 740 Balance 794.423 / 794.423 188.20 / 188.20 Cumulative 02/20/24 18:48 thru 02/21/24 09:10 Intake Total 1722.623 Output Total 740 Balance 982.623 RT Ventilator Mngmt (Last Documented) Ventilator Ordered Settings Ventilator Support Mode Assist Control 02/21/24 10:19 Respiratory Rate 33 02/21/24 10:19 Ventilator Tidal Volume 400 02/21/24 10:19 Setting Minute Ventilation 11.3 02/21/24 10:19 Positive End Expiratory 5 02/21/24 10:19 Pressure Fraction of Inspired Oxygen 40 02/21/24 10:19 Machine Comment weaned to 40%O2 02/21/24 07:20 Ventilator - PT Measurements Respiratory Rate 33 Exhaled Tidal Volume 370 Minute Ventilation 11.3 Peak Inspiratory Airway 27 Pressure Plateau Pressure 14 Respiratory Cycle Inspiratory: 1:2.9 Expiratory Ratio Inspiratory Phase Time 0.70 End-Tidal CO2 29 Static Lung Compliance 41.11 Dynamic Lung Compliance 16.82 Normal Static Lung Compliance 45.00 Coding Level of Care Code 97830 CRITICAL CARE EA ADD 30M Diagnoses Cardiac arrest I46.9 Anoxic brain injury G93.1 Lactic acidosis E87.20 Acute hypoxic respiratory failure J96.01 Aspiration pneumonitis J69.0
[2024-02-21] MEDS ORDERED: Heparin IV Adult Wt-Based Standard w/ INITIAL Bolus Protocol IV STA (14:46)
--- NOTE | 2024-02-21 14:56 | Neurology Consultation ---
Date of Consultation February 21, 2024 Assessment & Plan (1) Cardiac arrest: History of Present Illness Attending Physician: Maribell Millard MD History of Present Illness Pt currently intubated and off sedation since 8 am (about 6 hrs). pt not responsive. no abnormal movements seen. mri brain no acute finding and DWI without ischemic lesion. chart reviewed. admission HPI: The patient presented to the emergency department via ambulance with history of cardiac arrest/ROSC. His reports that he had gone into another room, and then she heard a loud noise, and found him to not be breathing, with his head tilted back, and she then called 911. EMS did give somewhere between 5-7 rounds of CPR, and epinephrine time 2. Patient was intubated on the scene, after being given 10 mg of Versed IV. The patient also received amiodarone 150 mg IV, and was brought to the emergency department. Primary Care Provider: NO PCP The patient is an 79-year-old male with a past medical history including hy perlipidemia, allergic symptoms, COPD, vitamin B12 deficiency, prediabetes and hypothyroidism. He presents to the emergency department status postcardiac arrest with ROSC as noted above. Due to hypotension, he was placed on Levophed, and also placed on fentanyl drip plus propofol for sedation. He did receive normal saline 1 L IV fluid bolus in the ED. Allergies Allergy/AdvReac Type Severity Reaction Status Date / Time cholecalciferol (vitamin D3) Allergy Unknown On file w/ Unverified 02/21/24 09:29 [From Vitamin D3] [facility] no reaction listed ciprofloxacin Allergy Unknown On file w/ Unverified 02/21/24 09:29 [facility] no reaction listed delafloxacin Allergy Unknown On file w/ Unverified 02/21/24 09:29 [facility] no reaction listed ergocalciferol (vitamin D2) Allergy Unknown On file w/ Unverified 02/21/24 09:29 [From Vitamin D2] [facility] no reaction listed moxifloxacin Allergy Unknown On file w/ Unverified 02/21/24 09:29 [facility] no reaction listed Quinolones Allergy Unknown On file w/ Unverified 02/21/24 09:29 [facility] no reaction listed Sulfa (Sulfonamide Allergy Unknown On file w/ Unverified 02/21/24 09:29 Antibiotics) [facility] no reaction listed sulfacetamide [From Plexion] Allergy Unknown On file w/ Unverified 02/21/24 09:29 [facility] no reaction listed sulfasalazine Allergy Unknown On file w/ Unverified 02/21/24 09:29 [facility] no reaction listed sulfur [From Plexion] Allergy Unknown On file w/ Unverified 02/21/24 09:29 [facility] no reaction listed thyroid, pork Allergy Unknown On file w/ Unverified 02/21/24 09:29 [From Niva Thyroid] [facility] no reaction listed latex Allergy Rash Verified 02/21/24 09:29 Home Medications Medication Instructions Recorded Confirmed Type atorvastatin 10 mg tablet 10 mg PO DAILY 02/21/24 02/21/24 History cetirizine 10 mg tablet 10 mg PO DAILY PRN Allergy Symptoms 02/21/24 02/21/24 History levothyroxine 50 mcg tablet See Rx Instructions .Route .COMPLEX 02/21/24 02/21/24 History (Synthroid) Patient History Medical History B12 deficiency COPD (chronic obstructive pulmonary disease) Hypothyroidism (acquired) Allergic symptoms Hyperlipidemia Social History Smoking Status: Never smoker Hx Alcohol Use: Yes Alcohol type: wine and hard liquor Hx Substance Use: No Preferred Language: Spanish Communication Ability: Effective Typists Supervisor Required: No Beliefs That Will Affect Care: None Current Living Situation: Spouse Other Information That Helps Us Care for You: No Feels Safe at Home: Yes Safety Concerns: Feels Safe At This Time Assistive Devices: Glasses Exam (Neuro) Physical Exam: Neuro: Mental: comatose state. intubated, off sedation now. CN: pupil reactive to light, random eye movements at times. intact corneal b /l and blink. intact VOR grossly. no spontaneous eye opening. Motor: No abnormal movements, normal tone. no jerks noted. no posturing noted. sens: no withdrawal to pain b/l. DTR: 1+ sym b/l, toes mute b/l. Impression: 79 yo male s/p cardiac arrest, unknown duration but fairly short time for CPR and intubation at the field. Pt with comatose state currently. EEG without status and showing diffuse slowing. MRI brain unremarkable. It is difficult to determine the prognosis as it only has been less than 12 hrs. Pt does however have intact brainstem function and no suggestion of major cerebral injury. Pt could still have anoxic brain injury that is not showing up on the mri. Recommendations: continue supportive care. pt with code status do not perform CPR. avoid hypotension. permissive HTN if myoclonic jerks return, may consider starting keppra 500mg IV bid but at this point ok to hold off on AED. avoid sedation will follow again. EEG report in chart. discussed with family about pt's condition. Chart reviewed I have spent more than 50% educating patient about potential diagnosis and neurological evaluation and coordinating care with patient's treatment team. Total time spent (including chart review and coordination of care): 60 min (this includes chart review). Results & Data Vital Signs (Past 12 Hours) Vital Signs Temp Pulse Resp BP Pulse Ox O2 Del Method FiO2 02/21/24 12:00 0.4 02/21/24 10:19 92 H 33 H 95 40 02/21/24 10:00 37.2 C 89 17 93 02/21/24 10:00 163/88 H 02/21/24 10:00 163/88 H 02/21/24 09:36 37.0 C 96 H 31 H 95 02/21/24 09:31 179/91 H 02/21/24 09:31 179/91 H 02/21/24 09:27 Mechanical Vent 0.5 02/21/24 09:12 36.8 C 82 17 97 02/21/24 09:00 36.8 C 69 22 98 02/21/24 08:35 0.5 02/21/24 08:30 120/71 02/21/24 08:30 120/71 02/21/24 08:30 120/71 02/21/24 08:30 36.7 C 57 L 22 97 02/21/24 08:09 36.7 C 60 22 97 02/21/24 08:00 125/74 02/21/24 07:57 36.8 C 60 22 97 02/21/24 07:33 36.8 C 64 22 97 02/21/24 07:30 117/82 02/21/24 07:20 65 22 98 50 02/21/24 06:57 36.9 C 62 23 98 02/21/24 06:33 37.0 C 65 22 98 02/21/24 06:30 123/78 02/21/24 06:30 123/78 02/21/24 06:30 123/78 02/21/24 06:30 123/78 02/21/24 06:27 37.0 C 66 22 97 02/21/24 06:06 37.0 C 71 23 97 50 02/21/24 06:00 141/81 H 02/21/24 06:00 141/81 H 02/21/24 05:48 36.9 C 84 31 H 96 02/21/24 05:33 36.8 C 67 24 96 02/21/24 05:30 136/85 02/21/24 05:30 136/85 02/21/24 05:18 36.8 C 63 22 98 02/21/24 05:03 36.8 C 62 22 98 50 02/21/24 05:00 129/77 02/21/24 05:00 129/77 02/21/24 04:48 36.8 C 71 22 100 02/21/24 04:39 36.8 C 64 22 98 02/21/24 04:15 65 22 98 50 02/21/24 04:00 126/81 02/21/24 04:00 36.9 C 65 22 98 50 02/21/24 04:00 50 02/21/24 03:32 37.1 C 66 22 98 02/21/24 03:30 120/80 02/21/24 03:29 37.1 C 66 22 98 02/21/24 03:08 37.1 C 65 22 98 02/21/24 03:00 115/76 50 02/21/24 02:56 37.2 C 65 22 99 PG Care Time/CCT Total # of Minutes Spent Total Time Spent with Patient: Total time spent is greater than 50% in coordination of care (as documented) at patient's floor/unit and/or counseling patient: Coding Level of Care Code 51170 IN/OBS CONSULT LVL 4,60M Diagnoses Cardiac arrest I46.9
--- NOTE | 2024-02-21 14:58 | Electroencephalogram ---
EEG Procedure Note Date of Service February 21, 2024 Start / End Times Start Time: 1208 End Time: 1228 Referring Physician gorge lozada History comatose Home Medication List Medication Instructions Recorded Confirmed Type atorvastatin 10 mg tablet 10 mg PO DAILY 02/21/24 02/21/24 History cetirizine 10 mg tablet 10 mg PO DAILY PRN Allergy Symptoms 02/21/24 02/21/24 History levothyroxine 50 mcg tablet See Rx Instructions .Route .COMPLEX 02/21/24 02/21/24 History (Synthroid) Inpatient Medication List Norepinephrine Bitartrate (Levophed/D5w) 4 mg in 250 mls @ 0 mls/hr IV .Q0M JAXON; Protocol Stop: 03/21/24 19:59 Last Titration: 02/21/24 00:37 Dose: 0 mcg/kg/min, 0 mls/hr Documented By: Titration: 02/20/24 21:54 Dose: 0.05 mcg/kg/min, 19.7 mls/hr Documented By: JTank Titration: 02/20/24 21:14 Dose: 0 mcg/kg/min, 0 mls/hr Documented By: Admin: 02/20/24 20:05 Dose: 0.05 mcg/kg/min, 19.7 mls/hr Documented By: NADER Co-signed By: ANTONY Propofol (Diprivan) 1,000 mg in 100 mls @ 0 mls/hr IV .Q0M JAXON; Protocol Stop: 02/23/24 21:14 Last Titration: 02/21/24 08:35 Dose: 0 mcg/kg/min, 0 mls/hr Documented By: Titration: 02/21/24 07:21 Dose: 20 mcg/kg/min, 12.6 mls/hr Documented By: CAM Co-signed By: CLC Admin: 02/21/24 01:35 Dose: 20 mcg/kg/min, 12.6 mls/hr Documented By: CLC Co-signed By: [id number] Titration: 02/21/24 01:35 Dose: Infused Documented By: CLC Co-signed By: [id number] Titration: 02/20/24 23:43 Dose: 20 mcg/kg/min, 12.6 mls/hr Documented By: Admin: 02/20/24 21:00 Dose: 15 mcg/kg/min, 9.5 mls/hr Documented By: NADER Co-signed By: BROOKLYN Pantoprazole Sodium (Protonix) 40 mg in 10 mls @ 5 mls/min IV BID [facility] Stop: 03/21/24 23:39 Last Admin: 02/21/24 09:59 Dose: 5 mls/min Documented By: Admin: 02/21/24 00:09 Dose: 5 mls/min Documented By: BREANNE Piperacillin Sod/Tazobactam Sod (Zosyn) 4.5 gm in 100 mls @ 25 mls/hr IV Q8H [facility]; Protocol Stop: 02/28/24 03:59 Last Admin: 02/21/24 12:39 Dose: 25 mls/hr Documented By: Infusion: 02/21/24 09:10 Dose: Infused Documented By: Admin: 02/21/24 04:21 Dose: 25 mls/hr Documented By: SERVANDO Parenteral Electrolytes (Plasma-Lyte A Ph 7.4) 1,000 mls @ 80 mls/hr IV .[id number] [facility] Stop: 02/22/24 00:29 Last Admin: 02/21/24 12:38 Dose: 80 mls/hr Documented By: Infusion: 02/21/24 12:38 Dose: Infused Documented By: Admin: 02/21/24 00:30 Dose: 80 mls/hr Documented By: BREANNE Miscellaneous (Icu Protocol For Hyperglycemia) 1 each N/A ACHS [facility] Stop: 02/23/24 07:29 Last Admin: 02/21/24 12:37 Dose: Not Given Documented By: Admin: 02/21/24 07:29 Dose: Not Given Documented By: ADRIANA Discontinued Medications Fentanyl Citrate (Fentanyl Citrate 2,500 Mcg/250 Ml Bag) Confirm Administered Dose 2,500 mcg IV .STK-MED ONE Stop: 02/20/24 20:02 Last Admin: 02/20/24 20:06 Dose: Not Given Documented By: NADER Sodium Chloride (Nss) 1,000 mls @ 999 mls/hr IV .Q1H1M ONE Stop: 02/20/24 20:24 Last Infusion: 02/20/24 20:26 Dose: Infused Documented By: Admin: 02/20/24 19:25 Dose: 999 mls/hr Documented By: NADER Fentanyl Citrate (Fentanyl Citrate) 2,500 mcg in 250 mls @ 2.5 mls/hr IV .Q96H JAXON; Protocol Stop: 03/05/24 19:59 Last Titration: 02/21/24 00:03 Dose: Infused Documented By: BREANNE Co-signed By: REBECCA Admin: 02/20/24 20:05 Dose: 25 mcg/hr, 2.5 mls/hr Documented By: NADER Co-signed By: ANTONY Piperacillin Sod/Tazobactam Sod (Zosyn) 4.5 gm in 100 mls @ 200 mls/hr IV NOW ONE; Protocol Stop: 02/20/24 21:01 Last Infusion: 02/20/24 21:44 Dose: Infused Documented By: Admin: 02/20/24 21:14 Dose: 200 mls/hr Documented By: NADER Calcium Chloride 1,000 mg/ (Dextrose) 60 mls @ 240 mls/hr IV NOW STA Stop: 02/20/24 23:28 Last Infusion: 02/21/24 00:37 Dose: Infused Documented By: Admin: 02/20/24 23:51 Dose: 240 mls/hr Documented By: BREANNE Potassium Chloride (K Satnam / Wtr) 10 meq in 100 mls @ 100 mls/hr IV Q1H JAXON; Protocol Stop: 02/21/24 01:14 Last Infusion: 02/21/24 01:58 Dose: Infused Documented By: Admin: 02/21/24 00:51 Dose: 100 mls/hr Documented By: [id number] Infusion: 02/21/24 00:51 Dose: Infused Documented By: [id number] Admin: 02/20/24 23:58 Dose: 100 mls/hr Documented By: BREANNE Ioversol (Optiray 320 125ml) 90 ml IV ONCE ONE Stop: 02/20/24 19:55 Last Admin: 02/20/24 19:55 Dose: 90 ml Documented By: VERONICA Escobaraneous (Stat Iv Infusion Titration Per Protocol) 1 each N/A NOW STA Stop: 02/20/24 19:59 Last Admin: 02/20/24 20:06 Dose: Not Given Documented By: NADER James (Stat Iv Infusion Titration Per Protocol) 1 each N/A NOW STA Stop: 02/20/24 20:01 Last Admin: 02/20/24 20:06 Dose: Not Given Documented By: NADER Miscellaneous (Stat Iv Infusion Titration Per Protocol) 1 each N/A NOW Stop: 02/20/24 21:07 Last Admin: 02/20/24 21:14 Dose: Not Given Documented By: NADER Norepinephrine Bitartrate (Norepinephrine/D5w 4 Mg/250 Ml) Confirm Administered Dose 4 mg IV .[employer]-MED ONE Stop: 02/20/24 19:29 Last Admin: 02/20/24 20:06 Dose: Not Given Documented By: NADER Potassium Chloride (Potassium Chloride 20 Meq/15 Ml Udc) 40 meq PO NOW Stop: 02/20/24 23:15 Last Admin: 02/20/24 23:58 Dose: 40 meq Documented By: BREANNE Propofol (Propofol Iv Emulsion 10 Mg/Ml 20 Ml Vial) Confirm Administered Dose 200 mg IV .[employer]-MED ONE Stop: 02/20/24 19:03 Last Admin: 02/20/24 19:48 Dose: Not Given Documented By: NADER Propofol (Propofol Iv Emulsion 10 Mg/Ml 100 Ml Vial) Confirm Administered Dose 1,000 mg IV .[employer]-MED ONE Stop: 02/20/24 19:06 Last Admin: 02/20/24 19:48 Dose: Not Given Documented By: NADER Description This is a 21 electrode EEG with a single channel dedicated to limited EKG. The electrodes were placed in accordance with the International 10-20 system. Interpretation This is a 21 electrode EEG with a single channel dedicated to limited EKG. The electrodes were placed in accordance with the International 10-20 system. There is a posterior dominant rhythm of 4-6 Hz which is symmetrically distributed and attenuates with eye opening. There is a normal anterior to posterior organization. Photic stimulation: not done. Hyperventilation performed: ___ unremarkable; _x_ not performed. There is no focal slowing. No epileptiform abnormalities. Interpretation Abnormal EEG as there is diffuse slowing globally, suggestive of diffuse encephalopathy. no epileptic discharge seen. [facility] EEG Procedure Codes Indication for Procedure (1) Cardiac arrest: Neurology Neurology: 13834 EEG include record awake & drowsy
[2024-02-21] MEDS: ASPIRIN 81 MG CHEW NG SCH (15:28)
[2024-02-21] MEDS: HEPARIN SODIUM/DEXTROSE 25,000 UNITS/500 ML BAG IV SCH (15:43)
[2024-02-21] MEDS: HEPARIN SOD (PORCINE) 1000 UNIT/ML IV ONE (15:45)
--- NOTE | 2024-02-21 16:16 | Hospitalist Progress Note ---
Date of Service February 21, 2024 Assessment & Plan (1) Cardiac arrest: Plan: 79-year-old man who had cardiac arrest at home, multiple rounds of CPR by medics prior to ROSC TTE done today shows wall motion abnormalities compatible with an LAD lesion, EF 20 to 25%. Presentation consistent with a primary cardiac cause of his arrest. No known history of CAD but had not seen a doctor in ten years. troponin peaked at 1200 and has down trended. required vasopressors overnight however not currently on them. - medical treatment for CAD/NSTEMI recommended - aspirin, heparin drip - coronary angiography if he regains alertness - holding off on B-cresencio because he had several minute episode of slow ventricular rate this afternoon Has not been alert following CPR which is very concerning for anoxic brain injury. He has been having myoclonic jerks and was unresponsive when off of sedation this morning. - Brain MRI completed is normal however too early to reflect anoxic injury - EEG completed today shows diffuse global slow slowing, no epileptiform discharges - Dr. Amezcua consulted and did speak with his family remains critically ill, discussed with the tunnel elastic operator lockstitch Dr Heath and motor vehicle inspector Dr. Humphries as well as his family at bedside including his and both daughters prognosis extremely guarded. His family says he would not wish to live in a neurologically devastated state. Currently no chest compressions/defibrillation per discussion between family and Dr. Heath (2) Acute hypoxic respiratory failure: Plan: Continue mechanical ventilation per ICU (3) Aspiration pneumonitis: Plan: Aspiration presumed to have occurred during cardiac arrest Continue pip-tazo (4) COPD (chronic obstructive pulmonary disease): Plan: Bronchodilators as needed (5) NSTEMI (non-ST elevated myocardial infarction): Plan: See above (6) Prediabetes: Plan: ICU insulin protocol for hyperglycemia (7) Transaminitis: Plan: Ischemic hepatitis/shock liver -monitor (8) Ischemic cardiomyopathy: Plan: see above EF 20-25%, wma's suggestive of LAD lesion Plan DVT ppx - heparin Admission and Anticipated Discharge Date Admission Date: February 20, 2024 Subjective intubated. off sedation currently but not responsive seen during TTE this AM and having frequent myoclonic jerks early afternoon with family only occasional myoclonic jerks, remains unresponsive had several minutes of agonal rhythm this afternoon per QA ARCHITECT spontaneously converted back to sinus tachycardia Physical Exam 2 Physical Exam: PHYSICAL EXAMINATION Last 24h vital signs reviewed, see documentation in flowsheet General: intubated HEENT: pupils pupils round equal sluggishly reactive Lungs: vent sounds anteriorly, no wheezing Heart: Regular rate and rhythm, no murmurs. No JVD Abdomen: Soft nondistended. dark urine in Deleon bag Extremities: Warm, dry, well-perfused. No extremity edema. Neuro: intubated, nonresponsive, PERRL, some upward nystagmus, myoclonic jerks no rhythmic tonic-clonic movements Results & Data Results & Data Vital Signs (Past 12 Hours) Vital Signs Temp Pulse Resp BP Pulse Ox O2 Del Method FiO2 02/21/24 12:00 0.4 02/21/24 10:19 92 H 33 H 95 40 02/21/24 10:00 37.2 C 89 17 93 02/21/24 10:00 163/88 H 02/21/24 10:00 163/88 H 02/21/24 09:36 37.0 C 96 H 31 H 95 02/21/24 09:31 179/91 H 02/21/24 09:31 179/91 H 02/21/24 09:27 Mechanical Vent 0.5 02/21/24 09:12 36.8 C 82 17 97 02/21/24 09:00 36.8 C 69 22 98 02/21/24 08:35 0.5 02/21/24 08:30 120/71 02/21/24 08:30 120/71 02/21/24 08:30 120/71 02/21/24 08:30 36.7 C 57 L 22 97 02/21/24 08:09 36.7 C 60 22 97 02/21/24 08:00 125/74 02/21/24 07:57 36.8 C 60 22 97 02/21/24 07:33 36.8 C 64 22 97 02/21/24 07:30 117/82 02/21/24 07:20 65 22 98 50 02/21/24 06:57 36.9 C 62 23 98 02/21/24 06:33 37.0 C 65 22 98 02/21/24 06:30 123/78 02/21/24 06:30 123/78 02/21/24 06:30 123/78 02/21/24 06:30 123/78 02/21/24 06:27 37.0 C 66 22 97 02/21/24 06:06 37.0 C 71 23 97 50 02/21/24 06:00 141/81 H 02/21/24 06:00 141/81 H 02/21/24 05:48 36.9 C 84 31 H 96 02/21/24 05:33 36.8 C 67 24 96 02/21/24 05:30 136/85 02/21/24 05:30 136/85 02/21/24 05:18 36.8 C 63 22 98 02/21/24 05:03 36.8 C 62 22 98 50 02/21/24 05:00 129/77 02/21/24 05:00 129/77 02/21/24 04:48 36.8 C 71 22 100 02/21/24 04:39 36.8 C 64 22 98 02/21/24 04:15 65 22 98 50 02/21/24 04:00 126/81 02/21/24 04:00 36.9 C 65 22 98 50 02/21/24 04:00 50 Laboratory Results 02/21/24 03:40 02/21/24 03:40 Diagnostic Findings brain MRI without acute changes EEG with generalized slowing PG Care Time/CCT Total # of Minutes Spent Total Time Spent with Patient: I personally spent: 55 min today on clinical care activities including: reviewing chart notes and vital signs reviewing labs reviewing studies discussion with performance management consultant(s) examining the patient counseling the patient's family writing orders documentation Coding Level of Care Code 63753 SUB INP/OBS CARE 3/50MIN Diagnoses Cardiac arrest I46.9 Acute hypoxic respiratory failure J96.01 Aspiration pneumonitis J69.0 COPD (chronic obstructive pulmonary disease) J44.9 NSTEMI (non-ST elevated myocardial infarction) I21.4 Prediabetes R73.03 Transaminitis R74.01 Ischemic cardiomyopathy I25.5
--- NOTE | 2024-02-21 19:24 | Electrocardiogram Report ---
Test Reason : Blood Pressure : */* mmHG Vent. Rate : 80 BPM Atrial Rate : 80 BPM P-R Int : 212 ms QRS Dur : 186 ms QT Int : 492 ms P-R-T Axes : 77 -44 111 degrees QTcB Int : 567 ms Sinus rhythm with 1st degree A-V block Left axis deviation Left anterior fascicular block Right bundle branch block Left ventricular hypertrophy with repolarization abnormality ( R in aVL , [place] product , Romhilt-E stes ) anteroseptal ST depression consistent with myocardial ischemia vs subendocardial RI Abnormal ECG No previous ECGs available Confirmed by Janice Humphries (Jenni) on 02/21/2024 7:24:15 PM Referred By: REFERRED SELF Confirmed By: Janice Humphries
--- NOTE | 2024-02-21 19:25 | Electrocardiogram Report ---
Test Reason : Blood Pressure : */* mmHG Vent. Rate : 63 BPM Atrial Rate : 63 BPM P-R Int : 230 ms QRS Dur : 170 ms QT Int : 470 ms P-R-T Axes : 23 35 63 degrees QTcB Int : 480 ms Sinus rhythm with 1st degree A-V block Non-specific intra-ventricular conduction block Abnormal ECG When compared with ECG of 20-Feb-2024 19:06, (unconfirmed) QRS axis Shifted right T wave amplitude has decreased in Inferior leads T wave inversion less evident in Lateral leads QT has shortened RBBB has resolved Confirmed by Janice Humphries (Jenni) on 02/21/2024 7:25:42 PM Referred By: REFERRED SELF Confirmed By: Janice Humphries
--- NOTE | 2024-02-21 19:27 | Electrocardiogram Report ---
Test Reason : Blood Pressure : */* mmHG Vent. Rate : 62 BPM Atrial Rate : 62 BPM P-R Int : 230 ms QRS Dur : 164 ms QT Int : 488 ms P-R-T Axes : 65 -36 38 degrees QTcB Int : 495 ms Sinus rhythm with 1st degree A-V block Left axis deviation (RBBB and left anterior fascicular block) Left ventricular hypertrophy with QRS widening Abnormal ECG When compared with ECG of 21-Feb-2024 00:23, (unconfirmed) QRS axis Shifted left anteroseptal ST depression has improved Confirmed by Janice Humphries (Jenni) on 02/21/2024 7:26:51 PM Referred By: REFERRED SELF Confirmed By: Janice Humphries
[2024-02-21 22:32] LABS: ANTI-Xa, UFH(UnfractionatedHep 0.83 IU/ml (0.3-0.7)
[2024-02-22] MEDS: PLASMA-LYTE A 1,000 ML IV SCH (01:40)
[2024-02-22 04:41] LABS: iSTAT Allen Test Pass; iSTAT Art Bld Gas pCO2 Correct 38 mmHg (35-46); iSTAT Art Bld Gas pH Corrected 7.432 (7.35-7.45); iSTAT Arterial Blood Gas HCO3 25 meg/L (19-24); iSTAT Arterial Blood Gas pCO2 37 mmHg (35-46); iSTAT Arterial Blood Gas pH 7.44 (7.35-7.45); iSTAT Arterial Blood Gas pO2 98 mmHg (80-95); iSTAT Arterial Blood Gas pO2 C 102; iSTAT Carbon Dioxide 27 mmol/L (24-31); iSTAT FiO2 50 %; iSTAT Hematocrit 35 % (42-52); iSTAT Hemoglobin 11.9 g/dl (14.0-18.0); iSTAT Potassium 3.7 mmol/L (3.3-5.0); iSTAT Sample Type Arterial; iSTAT Site L Radial; iSTAT Sodium 137 mmol/L (135-144); iSTAT SpO2 95
[2024-02-22 05:29] LABS: Basophils # (auto) 0.01 K/uL (0.00-0.20); Basophils % (auto) 0.1 %; Hematocrit (blood only) 34.3 % (42.0-52.0); Hemoglobin 11.9 g/dl (14.0-18.0); Immature Granulocytes # (auto) 0.05 K/uL (0.01-0.20); Immature Granulocytes % (auto) 0.4 %; Lymphocytes # (auto) 1.11 K/uL (1.20-3.40); Lymphocytes % (auto) 7.9 %; Mean Corpuscular Hemoglobin 30.8 pg (25.0-34.0); Mean Corpuscular Hgb Conc 34.7 g/dL (32.0-36.0); Mean Corpuscular Volume 88.9 fL (80.0-100.0); Mean Platelet Volume 9.9 fL (9.4-12.4); Monocytes # (auto) 1.27 K/uL (0.11-0.59); Neutrophils # (auto) 11.69 K/uL (1.40-6.50); Neutrophils % (auto) 82.6 %; Platelet Count 142 K/uL (130-400); RDW Coefficient of Variation 12.7 % (11.5-14.5); RDW Standard Deviation 41.4 fL (36.4-46.3); Red Blood Count 3.86 M/uL (4.70-6.10); White Blood Count 14.13 K/ul (4.8-10.8)
[2024-02-22 05:48] LABS: Albumin Globulin Ratio 1.1 (0.9-2); Albumin Level 3.3 gm/dl (3.4-5.0); BUN Creatinine Ratio 23.3 (10-20); Bilirubin,Total 0.7 mg/dl (0.2-1.0); Calcium 8.1 mg/dl (8.6-10.3); Creatinine Clr Calc Pharmacy 68.6 ml/min; Globulin 3.1 gm/dl (2.5-4.0); Magnesium 1.8 mg/dl (1.7-2.4); Phosphorus 3.2 mg/dl (2.5-4.9); Potassium 3.7 mmol/L (3.5-5.1); Total Protein 6.4 gm/dl (6.0-8.3)
[2024-02-22 06:17] LABS: ANTI-Xa, UFH(UnfractionatedHep 0.54 IU/ml (0.3-0.7)
[2024-02-22] MEDS: POTASSIUM CHLORIDE 20 MEQ/15 ML UDC PO STA (06:17)
[2024-02-22 06:21] LABS: INR 1.1 (0.9-1.1); Partial Thromboplastin Ratio 1.9; Partial Thromboplastin Time 52 Seconds (21-31); Prothrombin Time 11.5 Seconds (9.0-12.0)
--- NOTE | 2024-02-22 07:28 | Hospitalist Progress Note ---
Date of Service February 22, 2024 Assessment & Plan (1) Cardiac arrest: Plan: 79-year-old man who had cardiac arrest at home, multiple rounds of CPR by medics prior to ROSC TTE 02/20 wall motion abnormalities compatible with an LAD lesion, EF 20 to 25%. Presentation consistent with a primary cardiac cause of his arrest. No known history of CAD but had not seen a doctor in ten years. troponin peaked at 1200 and has down trended. required vasopressors initially but no longer requiring as of AM 02/20. - medical treatment for CAD/NSTEMI recommended - aspirin, heparin drip - coronary angiography if he regains alertness - holding off on B-cresencio because he had several minute episode of slow ventricular rate 02/20 Has not been alert following CPR which is very concerning for anoxic brain injury. He has been having myoclonic jerks and was unresponsive when off of sedation. no cough/gag - Brain MRI completed early 02/20 was normal however too early to reflect anoxic injury - EEG 02/20 shows diffuse global slow slowing, no epileptiform discharges - Dr. Amezcua consulted and did speak with his family 02/20 remains critically ill (2) Acute hypoxic respiratory failure: Plan: Continue mechanical ventilation per ICU Cannot protect airway. 40% FiO2, 5 PEEP (3) Aspiration pneumonitis: Plan: Aspiration presumed to have occurred during cardiac arrest Continue pip-tazo WBC increased to 14 (4) COPD (chronic obstructive pulmonary disease): Plan: Bronchodilators as needed (5) NSTEMI (non-ST elevated myocardial infarction): Plan: See above (6) Prediabetes: Plan: ICU insulin protocol for hyperglycemia - BG at goal A1c 6.3% very high risk of diabetes (7) Transaminitis: Plan: Ischemic hepatitis/shock liver -LFT improved today (8) Ischemic cardiomyopathy: Plan: see above EF 20-25%, wma's suggestive of LAD lesion Plan Mild RAY due to cardiac arrest - Cr improved from 1.4 -->1. Adequate uop of dark urine. Has baumann DVT ppx - heparin drip GI - on IV PPI Admission and Anticipated Discharge Date Admission Date: February 20, 2024 Subjective intubated no gag/cough not on pressors overnight Physical Exam Physical Exam: PHYSICAL EXAMINATION Last 24h vital signs reviewed, see documentation in flowsheet General: intubated HEENT: pupils pupils round equal sluggishly reactive Lungs: vent sounds anteriorly, no wheezing Heart: Regular rate and rhythm, no murmurs. No JVD Abdomen: Soft nondistended. dark urine in Baumann bag Extremities: Warm, dry, well-perfused. No extremity edema. Neuro: intubated, nonresponsive, PERRL, some upward nystagmus, myoclonic jerks no rhythmic tonic-clonic movements Results & Data Results & Data Vital Signs (Past 12 Hours) Vital Signs Temp Pulse Resp BP Pulse Ox FiO2 02/22/24 06:30 37.6 C H 91 H 32 H 161/82 H 93 02/22/24 06:06 37.5 C 74 20 94 02/22/24 05:36 37.5 C 65 22 93 02/22/24 05:03 37.6 C H 66 22 92 40 02/22/24 05:00 133/65 02/22/24 05:00 133/65 02/22/24 04:57 37.6 C H 70 26 H 94 40 02/22/24 04:39 37.6 C H 69 22 93 02/22/24 04:30 143/67 H 02/22/24 04:30 143/67 H 02/22/24 04:20 75 29 H 95 50 02/22/24 04:18 37.6 C H 70 27 H 95 02/22/24 04:00 37.6 C H 71 28 H 94 40 02/22/24 04:00 141/67 H 02/22/24 04:00 141/67 H 02/22/24 04:00 141/67 H 02/22/24 04:00 40 02/22/24 03:00 37.6 C H 67 22 94 50 02/22/24 03:00 130/66 02/22/24 03:00 130/66 02/22/24 02:33 37.7 C H 70 23 94 02/22/24 02:30 140/72 02/22/24 02:30 140/72 02/22/24 02:18 37.7 C H 67 22 95 02/22/24 02:00 134/71 50 02/22/24 02:00 37.6 C H 78 19 94 02/22/24 01:30 EST 37.6 C H 65 22 94 02/22/24 01:03 EST 37.6 C H 73 31 H 95 02/22/24 01:00 EST 147/77 H 02/22/24 00:00 71 02/22/24 00:00 50 02/21/24 22:40 70 23 94 50 02/21/24 22:33 37.9 C H 92 H 20 92 02/21/24 22:30 171/92 H 02/21/24 22:00 37.6 C H 84 18 93 40 02/21/24 21:33 37.6 C H 67 22 94 02/21/24 21:30 149/74 H 02/21/24 21:30 149/74 H 02/21/24 21:30 149/74 H 02/21/24 21:30 149/74 H 02/21/24 21:27 37.6 C H 77 23 93 02/21/24 21:15 37.6 C H 72 24 93 40 02/21/24 21:00 147/76 H 02/21/24 21:00 147/76 H 02/21/24 21:00 147/76 H 02/21/24 20:51 37.6 C H 69 25 H 93 02/21/24 20:45 37.6 C H 69 22 93 02/21/24 20:30 146/71 H PG Care Time/CCT Total # of Minutes Spent Total Time Spent with Patient: Total time spent is greater than 50% in coordination of care (as documented) at patient's floor/unit and/or counseling patient: Coding Diagnoses Cardiac arrest I46.9 Acute hypoxic respiratory failure J96.01 Aspiration pneumonitis J69.0 COPD (chronic obstructive pulmonary disease) J44.9 NSTEMI (non-ST elevated myocardial infarction) I21.4 Prediabetes R73.03 Transaminitis R74.01 Ischemic cardiomyopathy I25.5
--- NOTE | 2024-02-22 07:35 | Critical Care Progress Note ---
Date of Service February 22, 2024 Assessment & Plan (1) Cardiac arrest: Plan: Reason Critically Ill: 79-year-old male presents to the ICU post [facility] cardiac arrest where he received multiple rounds of CPR and epinephrine via EMS. He was reported to received some CPR by the neighbor prior to EMS arrival but unsure of exact downtime. He was on responsive after ROSC was achieved And emergently intubated prior to arrival to the hospital. Suspect underlying anoxic injury. Was briefly on vasopressors but now weaned off. Admitted to ICU for further management at this time. 24-hour events: EEG completed. Neurology consult completed. Remains off sedation. Hemodynamically stable Recommendations: Neuro - Likely significant anoxic injury. EEG and neurology consultation reviewed. Exam today slightly worse. He is now over 36 hours from his initial insult. Likelihood of significant functional recovery decreasing the longer he goes with persistent myoclonic jerks and without significant improvement in neurological exam. Extensive discussion with and daughter on the phone today. They initiated discussions about discontinuation of life-sustaining therapies. They believe that the patient would not want to pursue this aggressive care. He had been avoidant of medical care and hospitals in the past. In addition they state that if he was unable to obtain a quality of life or he could go home and be independent, this would not be acceptable to him. He would not want to be institutionalized in the definitely not want PEG tube or tracheostomy. They are meeting with their consumer product advisor today and with additional family members and will get back to us but are leaning at this point time towards comfort care measures and palliative extubation Cardiac - Cardiac arrest likely ischemic. Echo reviewed. Cardiology consultation reviewed. Given the patient's significant neurological findings, seems reasonable to hold off on cardiac catheterization currently. Will continue aspirin beta-cresencio and heparin. Lactic acidosis elevated on presentation consistent with prolonged downtime. Decreasing. Respiratory - Acute hypoxemic respiratory failureno previous history of pulmonary disease. Likely secondary to aspiration pneumonitis following cardiac arrest. Continue current antibiotics and continue mechanical ventilation pending improvement in patient's neurological status or family decision to pursue comfort measures GI - N.p.o. for now RENAL/LYTES - AKIcreatinine 1.43 without previous baseline to compare. Suspect this is prerenal following cardiac arrest. - No significant electrolyte abnormalities or acidosis to indicate bicarb. Continue with IV fluid resuscitation -Maintain maps greater than 65 to ensure renal perfusion -Avoid nephrotoxins and renally dose medications - Monitor routine BMPs. Replete electrolytes as indicated Lactic acidosis Likely secondary to cardiac arrest. Aspiration pneumonitis likely playing a role as well. Currently downtrending, trend till normal. - Foleystrict I's and O's ENDO - History of hypothyroidism on Synthroid in the outpatient setting. Will replete. ICU hyperglycemic protocol HEME - H&H stable, monitor routine CBC ID - Day #3 empiric Zosyn for aspiration pneumonia. Check respiratory cultures. LINES/IV ACCESS - Peripheral IVs. Patient currently weaned off vasopressor support, no indication for central line at this time DVT PROPHYLAXIS - SCDs CODE STATUS: Per conversation with the patient's family at bedside Conditional code with no additional CPR/defibrillation in the event of further cardiac arrest. Okay with mechanical ventilation for now I have personally spent 45 minutes of critical care time in the direct management of this patient including end-of-life discussions. This is a life/limb threatening event. This includes time spent evaluating patient, direct bedside care, chart review, placing orders, interpretation of diagnostic studies, discussion with consultants, patient, and family members, as well as other required patient management activities. This time is exclusive of all separately billable procedures, and teaching time and separate from and in addition to any other critical care service time. (2) Anoxic brain injury: (3) Lactic acidosis: (4) Acute hypoxic respiratory failure: (5) Aspiration pneumonitis: Admission and Anticipated Discharge Date Admission Date: February 20, 2024 Subjective Patient remains off sedation with no significant higher cortical function. Continues to exhibit myoclonic jerks Review of Systems Review of Systems: Unobtainable due to reduced consciousness Physical Exam Constitutional: WD/WN, vitals as above Neck: trachea midline, no thyromegaly Respiratory: normal respiratory effort, lungs clear to auscultation Cardiovascular: RRR, no murmur, no edema Gastrointestinal (Abdomen): normal bowel sounds, soft, nontender, no hepatosplenomegaly Musculoskeletal: Extremities: extremities normal to inspection Skin: no rashes, warm and dry Neurologic: Pupils minimally reactive on pupillometry. Corneal reflexes absent today. Oculocephalic absent. Patient demonstrates flexor posturing with pain to the lower extremities but no withdrawal to pain in the upper extremities. Lymphatic: no cervical lymphadenopathy Results & Data Results & Data Vital Signs (Past 12 Hours) Vital Signs Temp Pulse Resp BP Pulse Ox FiO2 11/03/24 06:30 37.6 C H 91 H 32 H 161/82 H 93 02/22/24 06:06 37.5 C 74 20 94 02/22/24 05:36 37.5 C 65 22 93 02/22/24 05:03 37.6 C H 66 22 92 40 02/22/24 05:00 133/65 02/22/24 05:00 133/65 02/22/24 04:57 37.6 C H 70 26 H 94 40 02/22/24 04:39 37.6 C H 69 22 93 02/22/24 04:30 143/67 H 02/22/24 04:30 143/67 H 02/22/24 04:20 75 29 H 95 50 02/22/24 04:18 37.6 C H 70 27 H 95 02/22/24 04:00 37.6 C H 71 28 H 94 40 02/22/24 04:00 141/67 H 02/22/24 04:00 141/67 H 02/22/24 04:00 141/67 H 02/22/24 04:00 40 02/22/24 03:00 37.6 C H 67 22 94 50 02/22/24 03:00 130/66 02/22/24 03:00 130/66 02/22/24 02:33 37.7 C H 70 23 94 02/22/24 02:30 140/72 02/22/24 02:30 140/72 02/22/24 02:18 37.7 C H 67 22 95 02/22/24 02:00 134/71 50 02/22/24 02:00 37.6 C H 78 19 94 02/22/24 01:30 EST 37.6 C H 65 22 94 02/22/24 01:03 EST 37.6 C H 73 31 H 95 02/22/24 01:00 EST 147/77 H 02/22/24 00:00 71 02/22/24 00:00 50 02/21/24 22:40 70 23 94 50 02/21/24 22:33 37.9 C H 92 H 20 92 02/21/24 22:30 171/92 H 02/21/24 22:00 37.6 C H 84 18 93 40 02/21/24 21:33 37.6 C H 67 22 94 02/21/24 21:30 149/74 H 02/21/24 21:30 149/74 H 02/21/24 21:30 149/74 H 02/21/24 21:30 149/74 H 02/21/24 21:27 37.6 C H 77 23 93 02/21/24 21:15 37.6 C H 72 24 93 40 02/21/24 21:00 147/76 H 02/21/24 21:00 147/76 H 02/21/24 21:00 147/76 H 02/21/24 20:51 37.6 C H 69 25 H 93 02/21/24 20:45 37.6 C H 69 22 93 Critical Care Results & Data Vital Signs (Past 12 Hours) Vital Signs Temp Pulse Resp BP Pulse Ox FiO2 02/22/24 07:30 71 23 93 40 02/22/24 07:00 37.6 C H 76 22 136/70 92 02/22/24 06:30 37.6 C H 91 H 32 H 161/82 H 93 02/22/24 06:06 37.5 C 74 20 94 02/22/24 05:36 37.5 C 65 22 93 02/22/24 05:03 37.6 C H 66 22 92 40 02/22/24 05:00 133/65 02/22/24 05:00 133/65 02/22/24 04:57 37.6 C H 70 26 H 94 40 02/22/24 04:39 37.6 C H 69 22 93 02/22/24 04:30 143/67 H 02/22/24 04:30 143/67 H 02/22/24 04:20 75 29 H 95 50 02/22/24 04:18 37.6 C H 70 27 H 95 02/22/24 04:00 37.6 C H 71 28 H 94 40 02/22/24 04:00 141/67 H 02/22/24 04:00 141/67 H 02/22/24 04:00 141/67 H 02/22/24 04:00 40 02/22/24 03:00 37.6 C H 67 22 94 50 02/22/24 03:00 130/66 02/22/24 03:00 130/66 02/22/24 02:33 37.7 C H 70 23 94 02/22/24 02:30 140/72 02/22/24 02:30 140/72 02/22/24 02:18 37.7 C H 67 22 95 02/22/24 02:00 134/71 50 02/22/24 02:00 37.6 C H 78 19 94 02/22/24 01:30 EST 37.6 C H 65 22 94 02/22/24 01:03 EST 37.6 C H 73 31 H 95 02/22/24 01:00 EST 147/77 H 02/22/24 00:00 71 02/22/24 00:00 50 02/21/24 22:40 70 23 94 50 02/21/24 22:33 37.9 C H 92 H 20 92 02/21/24 22:30 171/92 H 02/21/24 22:00 37.6 C H 84 18 93 40 02/21/24 21:33 37.6 C H 67 22 94 02/21/24 21:30 149/74 H 02/21/24 21:30 149/74 H 02/21/24 21:30 149/74 H 02/21/24 21:30 149/74 H 02/21/24 21:27 37.6 C H 77 23 93 Lab & Micro Results (Past 24 Hours) RBC 3.86 M/uL (4.70-6.10) L 02/22/24 WBC 14.13 K/ul (4.8-10.8) H 02/22/24 Hgb 11.9 g/dl (14.0-18.0) L 02/22/24 Hct 34.3 % (42.0-52.0) L 02/22/24 MCV 88.9 fL (80.0-100.0) 02/22/24 MCH 30.8 pg (25.0-34.0) 02/22/24 MCHC 34.7 g/dL (32.0-36.0) 02/22/24 RDW Standard Deviation 41.4 fL (36.4-46.3) 02/22/24 RDW Coefficient of Variation 12.7 % (11.5-14.5) 02/22/24 Plt Count 142 K/uL (130-400) 02/22/24 MPV 9.9 fL (9.4-12.4) 02/22/24 Neutrophils (%) (Auto) 82.6 % 02/22/24 Lymphocytes (%) (Auto) 7.9 % 02/22/24 Monocytes # (Auto) 1.27 K/uL (0.11-0.59) H 02/22/24 Eosinophils # (Auto) 0.00 K/uL (0.00-0.50) 02/22/24 Immature Granulocyte % (Auto) 0.4 % 02/22/24 Neutrophils # (Auto) 11.69 K/uL (1.40-6.50) H 02/22/24 Lymphocytes # (Auto) 1.11 K/uL (1.20-3.40) L 02/22/24 Monocytes # (Auto) 1.27 K/uL (0.11-0.59) H 02/22/24 Eosinophils # (Auto) 0.00 K/uL (0.00-0.50) 02/22/24 Basophils # (Auto) 0.01 K/uL (0.00-0.20) 02/22/24 Immature Granulocyte # (Auto) 0.05 K/uL (0.01-0.20) 4 Na 137 mmol/L (136-145) 02/22/24 K 3.7 mmol/L (3.5-5.1) 02/22/24 Cl 104 mmol/L (98-107) 02/22/24 CO2 26 mmol/L (21-32) 02/22/24 Anion Gap 7 (3-11) 02/22/24 BUN 24 mg/dl (6-23) H 02/22/24 Creatinine 1.03 mg/dl (0.6-1.4) 02/22/24 BUN/Creatinine Ratio 23.3 (10-20) H 02/22/24 Glu 138 mg/dl (70-99(Fasting)) H 02/22/24 Ca 8.1 mg/dl (8.6-10.3) L 02/22/24 Phosphorus Level 3.2 mg/dl (2.5-4.9) 02/22/24 Total Bilirubin 0.7 mg/dl (0.2-1.0) 02/22/24 AST 64 U/L (13-39) H 02/22/24 ALT 116 U/L (7-52) H 02/22/24 Alkaline Phosphatase 51 U/L (34-104) 02/22/24 TP 6.4 gm/dl (6.0-8.3) 02/22/24 Albumin 3.3 gm/dl (3.4-5.0) L 02/22/24 Globulin 3.1 gm/dl (2.5-4.0) 02/22/24 Albumin/Globulin Ratio 1.1 (0.9-2) 02/22/24 Mg 1.8 mg/dl (1.7-2.4) 02/22/24 05:09 Calcium Level 8.1 mg/dl (8.6-10.3) L 02/22/24 05:09 Prothromb Time International Ratio 1.1 (0.9-1.1) 02/22/24 05:0 9 Raul Test Pass 02/22/24 04:27 I & O Totals 24 Hours 02/21/24 02/22/24 02/23/24 07:59 06:59 06:59 Intake Total 135 / 135 Output Total Balance 135 / 135 Cumulative 02/20/24 18:48 thru 02/22/24 08:10 Intake Total 4474.440 Output Total 1265 Balance 3209.440 RT Ventilator Mngmt (Last Documented) Ventilator Ordered Settings Ventilator Support Mode Assist Control 02/22/24 07:30 Respiratory Rate 23 02/22/24 07:30 Ventilator Tidal Volume 400 02/22/24 07:30 Setting Minute Ventilation 8.8 02/22/24 07:30 Positive End Expiratory 5 02/22/24 07:30 Pressure Fraction of Inspired Oxygen 40 02/22/24 07:30 Machine Comment vent settings adjust per Dr Heath 02/22/24 07:30 Ventilator - PT Measurements Respiratory Rate 23 Exhaled Tidal Volume 392 Minute Ventilation 8.8 Peak Inspiratory Airway 25 Pressure Plateau Pressure 15 Respiratory Cycle Inspiratory: 1:4.0 Expiratory Ratio Inspiratory Phase Time 0.60 End-Tidal CO2 35 Static Lung Compliance 39.20 Dynamic Lung Compliance 19.60 Normal Static Lung Compliance 45.00 Coding Level of Care Code 25099 CRITICAL CARE 1ST 30-74M Diagnoses Cardiac arrest I46.9 Anoxic brain injury G93.1 Lactic acidosis E87.20 Acute hypoxic respiratory failure J96.01 Aspiration pneumonitis J69.0
--- NOTE | 2024-02-22 09:42 | Death Pronouncement Note ---
Date of Service February 22, 2024 Pronouncement Note Admission Date Admission Date: February 20, 2024 Date and Time of Date of : 02/22/24 Time of : 09:10 PCOD Preliminary cause of : Cardiac arrest due to underlying cardiac condition Contributing Factors (1) Cardiac arrest: Contributing factors: Coronary artery disease (2) Anoxic brain injury: (3) Lactic acidosis: (4) Acute hypoxic respiratory failure: (5) Aspiration pneumonitis: (6) Prediabetes: (7) COPD (chronic obstructive pulmonary disease): (8) Transaminitis: (9) NSTEMI (non-ST elevated myocardial infarction): (10) Ischemic cardiomyopathy: Additional Data Family: contacted Attending/PCP notified?: Yes Attending physician: Maribell Millard MD Was code activated?: No
--- NOTE | 2024-02-22 09:58 | Discharge Summary ---
Discharge Summary Date of Service February 22, 2024 Principal Dx & Hospital Course #1 = Principal Diagnosis (1) Cardiac arrest: 79-year-old man without significant medical history who had cardiac arrest at home, underwent multiple rounds of CPR by medics prior to ROSC TTE 02/20 wall motion abnormalities compatible with an LAD lesion, EF 20 to 25%. Presentation consistent with a primary cardiac cause of his arrest. No known history of CAD but had not seen a doctor in ten years. NSTEMI - troponin peaked at 1200 and has down trended. required vasopressors initially for cardiogenic shock but were able to be discontinued by following morning. - optical mechanic apprentice consulted - recommended medical treatment for CAD/NSTEMI recommended - aspirin, heparin drip. B-cresencio not started because of prolonged episode of asystole/slow ventricular rate on 02/20. Coronary angiography not planned because he did not regain consciousness and neurologic prognosis was poor. Was not alert following CPR and did not regain consciousness. Neurologist consulted. Discussed with Dr. Amezcua this morning. - Brain MRI completed early 02/20 was normal however too early to reflect anoxic injury - EEG completed 02/20 diffuse global slow slowing, no epileptiform discharges - Remained unresponsive off sedation with myoclonic jerks, no gag/cough, posturing reflexes, pupils sluggishly reactive as of this morning, consistent with anoxic brain injury His family reported he would not wish to live in a neurologically devastated state. No chest compressions/defibrillation per discussion between family and Dr. Heath 02/20. This morning he had recurrent cardiac arrest, suddenly developing asystole from which he did not recover. There was no evidence of cardiac contractility on bedside ultrasound. (2) Anoxic brain injury: (3) Lactic acidosis: (4) Acute hypoxic respiratory failure: (5) Aspiration pneumonitis: (6) Prediabetes: (7) COPD (chronic obstructive pulmonary disease): (8) Transaminitis: (9) NSTEMI (non-ST elevated myocardial infarction): (10) Ischemic cardiomyopathy: Admission HPI Per Admitting Provider The patient is an 79-year-old male with a past medical history including hyperlipidemia, allergic symptoms, COPD, vitamin B12 deficiency, prediabetes and hypothyroidism. He presents to the emergency department status postcardiac arrest with ROSC as noted above. Due to hypotension, he was placed on Levophed, and also placed on fentanyl drip plus propofol for sedation. He did receive normal saline 1 L IV fluid bolus in the ED. Discharge Exam PHYSICAL EXAMINATION Last 24h vital signs reviewed, see documentation in flowsheet General: unresponsive, intubated Lungs: no respiratory efforts Heart: no heart sounds Abdomen: Soft, nondistended blood-tinged urine in Deleon catheter Extremities: Warm, dry, well-perfused. No extremity edema. Neuro: unresponsive, pupils fixed and dilated Discharge Plan Discharge Items Reason For Visit: CARDIAC ARREST, CPR, B/L ASPIRATION PNEUMONIA Follow-up/Referrals: PCP,NO [Primary Care Provider] - Medications and DC Order Prescriptions: No Action cetirizine 10 mg tablet 10 mg PO DAILY PRN (Reason: Allergy Symptoms) atorvastatin 10 mg tablet 10 mg PO DAILY levothyroxine [Synthroid] 50 mcg tablet See Rx Instructions .ROUTE .COMPLEX Rx Instructions: Take 100mcg by mouth on Friday/Friday//Friday and 150mcg by mouth on Friday/Friday/Friday Krames/Other Patient Handouts: A1C Admission Data Admit Date/Time: 02/20/24 21:14 Attending Provider: Maribell Millard Admit Provider: Manfred Foster Primary Care Provider: PCP,TWILA Other Providers: Manfred Foster; Marlo Heath; Fito Jimenez; Napoleon Chatterjee; Haris Mitchell; Triston Barker; Gerardo Campos; Remigio Fuller Jr; Amador Schultz; Pattie Prince; Tanja Vigil; Elia Monteiro; Elia Stoll; Tj Valentine; Lee Ann Mcmillan; Shay Kessler; Shanel Motta; Michael Roman; Shay Holden; Mike Corea; Mikel Ly; Boby Guadalupe; Celestine Caruso; Delia Briseno; Kelsey Lawrence; Rosalia Delgado; Cuco Amezcua Hospital Stay Data Consultations 02/20/24 20:49 ED Decision to Admit Stat 02/20/24 23:40 Consult Restaurant Team Member Routine 02/21/24 01:57 Consult Cardiology Routine 02/21/24 11:50 Consult Neurology Routine Diagnostic Imagining Performed 02/20/24 19:16 CT head/brain wo con Stat CT neck [CT cervical spine wo con] Stat 02/20/24 19:37 CT for pulmonary embolism PE [CT angio chest PE protocol] Stat 02/20/24 21:38 MRI Brain [MR brain wo con] Stat Total Time Total Time Spent Total Time Spent (In Minutes): I personally spent: 45 minutes today on clinical care activities including: reviewing chart notes and vital signs reviewing labs reviewing studies discussion with retirement consultant(s) - home theater installer, neurologist at bedside examining the patient documentation Coding Level of Care Code 63451 INP/OBS DISCH >30 MIN Diagnoses Cardiac arrest I46.9 Anoxic brain injury G93.1 Lactic acidosis E87.20 Acute hypoxic respiratory failure J96.01 Aspiration pneumonitis J69.0 Prediabetes R73.03 COPD (chronic obstructive pulmonary disease) J44.9 Transaminitis R74.01 NSTEMI (non-ST elevated myocardial infarction) I21.4 Ischemic cardiomyopathy I25.5
--- NOTE | 2024-02-22 10:40 | XRay Report ---
XR chest 1V portable HISTORY: 79 years-old Male Resp failure acute respiratory failure COMPARISON: 02/20/2024 TECHNIQUE: AP view of the chest FINDINGS: Endotracheal tube overlies the midline, 5.4 cm superior to the trey. Distal tip of enteric tube pro jects over the gastric body. No pneumothorax. Pulmonary vascular congestion has mildly improved. Trac e pleural effusions with mild bibasilar opacities. IMPRESSION: 1. Endotracheal and enteric tube placement as above. 2. Cardiomegaly with mildly improved pulmonary vascular congestion and persistent mild bibasilar opac ities. ACT 112: Negative or not required by law. The above report was generated using voice recognition software. It may contain grammatical, syntax o r spelling errors. Electronically signed by: Parveen Tracey M.D. 02/22/2024 10:38 AM
--- NOTE | 2024-02-22 14:30 | Electrocardiogram Report ---
Test Reason : Blood Pressure : */* mmHG Vent. Rate : 72 BPM Atrial Rate : 72 BPM P-R Int : 210 ms QRS Dur : 162 ms QT Int : 502 ms P-R-T Axes : 29 -37 102 degrees QTcB Int : 549 ms Sinus rhythm with 1st degree A-V block Left axis deviation Right bundle branch block Left ventricular hypertrophy with repolarization abnormality Abnormal ECG When compared with ECG of 21-Feb-2024 05:02, Right bundle branch block is now Present Confirmed by Janice Humphries (Jenni) on 02/22/2024 2:29:57 PM Referred By: REFERRED SELF Confirmed By: Janice Humphries
[2024-02-23] MEDS ORDERED: LEVOTHYROXINE SODIUM 25 MCG TABLET PO SCH (06:30)
== END 2024-02-22 15:26 | disposition expired ==
LOC: ED 19:01 → 1E 21:14 → SUATTDRO 21:14 → 1E 22:05